=== PATIENT | male | born 1965 | race Hispanic/Latino ===

== ENCOUNTER 2017-10-18 09:25 | Day surgery (SDC) | payer MEDICAID ==
[~2017-10-18 09:25] MED LIST: ACET-66 PO; CRAN1TAB2 PO; FERR220E7 PO; FOLI1TAB15 PO; LACT10SO9 PO; LORA0.5T83 PO; MELA1TAB28 PO; MIRALAX PO; MULT-248 PO; SENN8.8S10 PO; [UNRECOGNIZED DRUG - SUPPLY] PO
[2017-10-18 10:13] LABS: HEMATOCRIT 26.8 % (42-54)
== END 2017-10-18 11:45 ==
LOC: DAH 09:25
PROVIDERS: ATTEND Family Medicine
DX: D50.9 Iron deficiency anemia, unspecified (principal); Z53.9 Procedure and treatment not carried out, unspecified reason; G80.2 Spastic hemiplegic cerebral palsy; K21.9 Gastro-esophageal reflux disease without esophagitis; F41.9 Anxiety disorder, unspecified; E56.8 Deficiency of other vitamins; E46 Unspecified protein-calorie malnutrition; Z79.899 Other long term (current) drug therapy
CPT/HCPCS: 36415; 85014; 85018; 86850; 86900; 86901; 86922

== ENCOUNTER 2018-07-01 10:40 | Inpatient (IN) | payer MEDICAID ==
[2018-07-01] VITALS (9 sets, daily range): BP systolic 95–122; BP diastolic 51–93
[~2018-07-01 10:40] MED LIST changes: -LORA0.5T83 PO; -MIRALAX PO; -[UNRECOGNIZED DRUG - SUPPLY] PO
[2018-07-01] MEDS ORDERED: LORAZEPAM 2 MG/ML 1 ML VIAL ONE (11:35)
[2018-07-01] MEDS ORDERED: SODIUM CHLORIDE 0.9% 1000ML 1,000 ML IV ONE (11:38)
[2018-07-01 12:25] LABS: BASOPHILS % (AUTO) 2.6 % (0.0-5.0); LYMPHOCYTES % (AUTO) 19.2 % (21.0-51.0); MEAN CORPUSCULAR HEMOGLOBIN 19.3 pg (27.0-33.0); MEAN CORPUSCULAR HGB CONC 28.1 g/dL (32.0-36.0); MEAN CORPUSCULAR VOLUME 68.7 fL (79-99); NEUTROPHILS % (AUTO) 56.2 % (40.0-77.0); NUCLEATED RED BLOOD CELLS 0.1 % (0.0-0.19); PLATELET COUNT (AUTO) 269 K/uL (130-400); RED BLOOD CELL COUNT(AUTO) 3.63 MIL/uL (4.50-6.20); RED CELL DISTRIBUTION WIDTH 22.5 % (11.0-15.5); WHITE BLOOD COUNT (AUTO) 3.7 K/uL (4.8-10.8)
[2018-07-01 12:40] LABS: INR 1.01 (0.85-1.15); PARTIAL THROMBOPLASTIN TIME 24.3 SEC (26.3-35.5); PROTHROMBIN TIME 10.6 SEC (9.6-11.6)
[2018-07-01] MEDS ORDERED: ACETAMINOPHEN 325 MG TAB PO PRN ×2 (13:00)
[2018-07-01] MEDS ORDERED: HYDRALAZINE HCL 20 MG/ML VIAL IV PRN (13:00)
[2018-07-01] MEDS ORDERED: ONDANSETRON HCL 4 MG/2 ML VIAL IV PRN (13:00)
[2018-07-01 13:08] LABS: CREATININE 0.7 mg/dL (0.5-1.5)
[2018-07-01] MEDS ORDERED: SODIUM CHLORIDE 0.9% 100 ML IV ONE (13:58)
[2018-07-01 14:42] LABS: % IRON SATURATION 1.4 % (30-44)
--- NOTE | 2018-07-01 20:00 | NUR ---
PT ASSESSMENT- IN BED, ONE TO ONE SITTER JAQUELINE. AAOX1. INCOMPREHENSIBLE SOUNDS. PERRLA. LAST BM 06/30. HYPOACTIVE BOWEL SOUNDS. PT IS VERY ACTIVE. MOVES AROUND ALOT IN BED. CONTRACTED TO EXTREMITIES. CEREBRAL PALSY HISTORY. IV PATENT AND WRAPPED IN BANDAGE. PT RECEIVING ONE UNIT OF RBCS. NO REACTIONS NOTED. VSWNL. BRIEF IN PLACE.
[2018-07-02] MEDS ORDERED: LORAZEPAM 2 MG/ML 1 ML VIAL IVP ONE (01:00)
--- NOTE | 2018-07-02 01:00 | NUR ---
PT NOTED TO HAVE INCREASED ACTIVITY LEVELS AND INCREASED ANXIETY. PT RESTLESS. CONTINUING TO PULL AT IV AND ATTEMPT TO GET OUT OF BED. CALLED NING UGARTE NP. NEW ORDER FOR ATIVAN 1MG IV X1DOSE.
--- NOTE | 2018-07-02 02:00 | NUR ---
PT EYES CLOSED, NO DISTRESS NOTED. NO ATIVAN ADMINISTERED AT THE MOMENT.
[2018-07-02 04:00] VITALS: BP 112/59
[2018-07-02 04:01] VITALS: BP 112/59
[2018-07-02] MEDS ORDERED: COMPOUND IV MISC 1 EACH IVSOLN MISC PRN (07:00)
[2018-07-02] MEDS ORDERED: EPOETIN ALFA 10,000 UNIT/ML VIAL SQ SCH (07:00)
[2018-07-02 07:26] LABS: MEAN CORPUSCULAR HEMOGLOBIN 21.3 pg (27.0-33.0); MEAN CORPUSCULAR VOLUME 71.2 fL (79-99); NUCLEATED RED BLOOD CELLS 0.4 % (0.0-0.19); PLATELET COUNT (AUTO) 271 K/uL (130-400); RED BLOOD CELL COUNT(AUTO) 3.79 MIL/uL (4.50-6.20); RED CELL DISTRIBUTION WIDTH 23.8 % (11.0-15.5)
[2018-07-02 07:32] LABS: INR 1.02 (0.85-1.15); PARTIAL THROMBOPLASTIN TIME 26.2 SEC (26.3-35.5); PROTHROMBIN TIME 10.7 SEC (9.6-11.6)
[2018-07-02 07:36] VITALS: BP_SYST 115; BP_SYST 89; BP_DIAS 57; BP_DIAS 59
[2018-07-02 08:17] LABS: ALBUMIN 2.6 g/dL (3.5-5.0); BILIRUBIN,TOTAL 0.5 mg/dL (0.2-1.0); CREATININE 0.6 mg/dL (0.5-1.5); MAGNESIUM 1.9 mg/dL (1.80-2.40); PHOSPHORUS 2.7 mg/dL (2.5-4.9); POTASSIUM 4.2 mmol/L (3.5-5.1); TOTAL PROTEIN, SERUM 5.6 g/dL (6.0-8.3)
[2018-07-02] MEDS ORDERED: PANTOPRAZOLE SODIUM 80 MG in SODIUM CHLORIDE 0.9% 100 ML IV SCH (09:00)
[2018-07-02] MEDS ORDERED: IRON SUCROSE COMPLEX 100 MG in SODIUM CHLORIDE 0.9% 50 ML IV SCH (09:00)
[2018-07-02 11:56] VITALS: BP 92/65
[2018-07-02] MEDS ORDERED: ASCO500T9 PO (12:01)
[2018-07-02] MEDS ORDERED: PANT40TA PO (12:01)
--- NOTE | 2018-07-02 14:00 | NUR ---
REPORT GIVEN TO PAYAM MCKINNEY FROM [facility] AND [facility] PATIENTS SISTER. BOTH AWARE OF TRANSFER TO [facility].
--- NOTE | 2018-07-02 14:01 | NUR ---
PENDING [facility] TRANSPORTATION
--- NOTE | 2018-07-02 14:36 | NUR ---
DC PLAN PER KRYS Landin/ DANNI, PATIENT ACCEPTED BACK. NO PASRR NEEDED. UPDATED PRIMARY NURSE. CHART ALREADY COPIED.
--- NOTE | 2018-07-02 17:00 | NUR ---
PATIENT TRANSFERRED BY [facility] STAFF NO DISTRESS.
[2018-07-03] MEDS ORDERED: PANTOPRAZOLE SODIUM 40 MG TABLET.DR PO SCH (09:00)
[2018-07-03] MEDS ORDERED: ASCORBIC ACID 500 MG TAB PO SCH (09:00)
[2018-07-03] MEDS ORDERED: FERROUS SULFATE 325 MG TABLET.DR PO SCH (09:00)
== END 2018-07-02 17:13 | DRG 663 ==
LOC: EDH 10:40 → EDHIP 10:41 → 2AH 13:35
PROVIDERS: ADMIT Internal Medicine; ATTEND Internal Medicine
PROC: 30233N1 Transfusion of Nonautologous Red Blood Cells into Peripheral Vein, Percutaneous Approach (ICD-10-PCS; principal; 2018-07-02)
DX: D64.9 Anemia, unspecified (principal); R53.2 Functional quadriplegia; J98.4 Other disorders of lung; M41.9 Scoliosis, unspecified; K21.9 Gastro-esophageal reflux disease without esophagitis; G80.9 Cerebral palsy, unspecified; K92.2 Gastrointestinal hemorrhage, unspecified; Z66 Do not resuscitate; Z88.5 Allergy status to narcotic agent; Z88.8 Allergy status to other drugs, medicaments and biological substances; Z74.01 Bed confinement status; Z83.3 Family history of diabetes mellitus; Z82.5 Family history of asthma and other chronic lower respiratory diseases; Z82.49 Family history of ischemic heart disease and other diseases of the circulatory system; Z82.3 Family history of stroke; Z82.0 Family history of epilepsy and other diseases of the nervous system
CPT/HCPCS: 36415; 36430; 80048; 80053; 82270; 83540; 83550; 83735; 84100; 84443; 85025; 85027; 85610; 85730; 86850; 86900; 86901; 86922; 87040; 99291; G0378; J0885; J1756; J2060; J7030; P9016

== ENCOUNTER 2018-07-18 11:00 | Emergency (ER) | payer MEDICAID ==
[~2018-07-18 11:00] MED LIST changes: +ASCO500T9 PO; +PANT40TA PO
[2018-07-18 11:32] LABS: BASOPHILS % (AUTO) 2.5 % (0.0-5.0); EOSINOPHILS % (AUTO) 11.2 % (0.0-8.0); HEMATOCRIT 24.2 % (42-54); LYMPHOCYTES % (AUTO) 18.3 % (21.0-51.0); MEAN CORPUSCULAR HGB CONC 29.7 g/dL (32.0-36.0); MEAN CORPUSCULAR VOLUME 67.3 fL (79-99); MONOCYTES % (AUTO) 14.5 % (3.0-13.0); NEUTROPHILS % (AUTO) 53.5 % (40.0-77.0); NUCLEATED RED BLOOD CELLS 0.2 % (0.0-0.19); PLATELET COUNT (AUTO) 424 K/uL (130-400); RED BLOOD CELL COUNT(AUTO) 3.59 MIL/uL (4.50-6.20); RED CELL DISTRIBUTION WIDTH 21.6 % (11.0-15.5); WHITE BLOOD COUNT (AUTO) 4.4 K/uL (4.8-10.8)
[2018-07-18 11:40] LABS: CREATININE 0.8 mg/dL (0.5-1.5); POTASSIUM 4.2 mmol/L (3.5-5.1)
[2018-07-18 11:46] LABS: BILIRUBIN,TOTAL 0.2 mg/dL (0.2-1.0); TOTAL PROTEIN, SERUM 6.5 g/dL (6.0-8.3)
[2018-07-18] MEDS ORDERED: MINERAL OIL 25 ML OIL TP SCH (12:15)
[2018-07-18 16:26] LABS: HEMATOCRIT 27.8 % (42-54)
== END 2018-07-18 17:26 | disposition home or self-care (01) ==
LOC: EDH 11:00
DX: H61.23 Impacted cerumen, bilateral (principal); D50.0 Iron deficiency anemia secondary to blood loss (chronic); K92.2 Gastrointestinal hemorrhage, unspecified; G80.9 Cerebral palsy, unspecified; R62.50 Unspecified lack of expected normal physiological development in childhood; K21.9 Gastro-esophageal reflux disease without esophagitis; Z88.6 Allergy status to analgesic agent; Z91.018 Allergy to other foods
CPT/HCPCS: 36415; 69210; 80053; 85014; 85018; 85025; 86850; 86900; 86901; 86922; 99284; P9016

== ENCOUNTER 2018-09-26 08:24 | Observation (INO) | payer MEDICAID ==
[~2018-09-26] VITALS: Ht 157.5 cm; Wt 37.0 kg
[~2018-09-26 08:24] MED LIST changes: +DOCU-116 PO; -FERR220E7 PO; -LACT10SO9 PO
[2018-09-26 10:51] LABS: BASOPHILS % (AUTO) 1.6 % (0.0-5.0); EOSINOPHILS % (AUTO) 19.8 % (0.0-8.0); HEMATOCRIT 21.4 % (42-54); LYMPHOCYTES % (AUTO) 22.7 % (21.0-51.0); MEAN CORPUSCULAR HEMOGLOBIN 21.2 pg (27.0-33.0); MEAN CORPUSCULAR HGB CONC 29.7 g/dL (32.0-36.0); MEAN CORPUSCULAR VOLUME 71.3 fL (79-99); MONOCYTES % (AUTO) 7.7 % (3.0-13.0); NEUTROPHILS % (AUTO) 48.2 % (40.0-77.0); NUCLEATED RED BLOOD CELLS 0.2 % (0.0-0.19); PLATELET COUNT (AUTO) 368 K/uL (130-400); WHITE BLOOD COUNT (AUTO) 3.7 K/uL (4.8-10.8)
[2018-09-26 11:01] LABS: CREATININE 0.7 mg/dL (0.5-1.5); POTASSIUM 3.8 mmol/L (3.5-5.1)
[2018-09-26] MEDS ORDERED: HYDRALAZINE HCL 20 MG/ML VIAL IV PRN (11:45)
[2018-09-26] MEDS ORDERED: LACTULOSE 20 GM/30 ML UDCUP PO PRN (11:45)
[2018-09-26] MEDS ORDERED: ONDANSETRON HCL 4 MG/2 ML VIAL IV PRN (11:45)
[2018-09-26] MEDS ORDERED: ACETAMINOPHEN 325 MG TAB PO PRN ×2 (11:45)
[2018-09-26] MEDS: FAMOTIDINE/PF 20 MG/2 ML VIAL IV SCH (21:00)
[2018-09-26] MEDS ORDERED: FAMOTIDINE/PF 20 MG/2 ML VIAL IV ONE (22:25)
[2018-09-26 23:25] VITALS: BP 105/64
--- NOTE | 2018-09-26 23:25 | NUR ---
ADMISSION NOTE: Received per stretcher and transferred in bed comfortably. VS checked and recorded. Assessment done. Plan of care initiated. Dr. Clemens seen and examined pt. Monitored and kept watched for any unusualities. Placed on 1:1 level of supervision for safety. Distress / discomfort not noted. Needs attended and cared for.
[2018-09-27] MEDS ORDERED: DiphenhydrAMINE HCL 50 MG/ML VIAL IV SCH (02:45)
[2018-09-27] MEDS ORDERED: DiphenhydrAMINE HCL 50 MG/ML VIAL ONE (02:45)
[2018-09-27 04:00] VITALS: BP 101/61
[2018-09-27 04:21] LABS: HEMATOCRIT 28.9 % (42-54)
[2018-09-27 04:36] LABS: % IRON SATURATION 4.2 % (30-44)
[2018-09-27] MEDS ORDERED: SENN8.6T52 PO (06:32)
[2018-09-27] MEDS ORDERED: PANT40SU PO (06:32)
[2018-09-27] MEDS ORDERED: MULT1TAB70 PO (06:49)
[2018-09-27] MEDS ORDERED: ACET-2743 PO (06:51)
[2018-09-27 08:00] VITALS: BP 98/61
--- NOTE | 2018-09-27 09:29 | NUR ---
Nutrition Intervention: Nutrition screen by RD for low BMI-14.9. At time of RD visit pt asleep with no caregiver at bedside. Pt easily awaken to the sound of my voice, however unable to obtain nutritional feedback from him. As per pt's RN, pt's diet is NPO for possible GI bleed. RD to return when pt's caregiver is present to obtain nutritional feedback and recommend appropriate diet placement when diet is feasible to advance. Recommendations: Please contact RD when caregiver is present to obtain nutritional feedback. Addendum: 09/27/18 at [address] Amended: Links added.
[2018-09-27] MEDS: FAMOTIDINE/PF 20 MG/2 ML VIAL IV SCH (09:46)
[2018-09-27 11:00] VITALS: BP 98/49
--- NOTE | 2018-09-27 12:24 | NUR ---
NUTRITION RECOMMENDATIONS: RD spoke to Sona Díaz EMPLOYMENT COUNSELOR over the phone as pt is a known patient of hers. EMPLOYMENT COUNSELOR reports texture baselines of puree textures, Zeb thick liquid consistency and requires feeding assistance. EMPLOYMENT COUNSELOR plans to advance diet therapy today. As per PMH and pt's baseline, recommend diet therapy of of SOFT/BLAND with PUREE and NECTAR THICK LIQUIDS modifiers for appropriate diet placement to prevent GI discomfort. Recommendations: Diet therapy: Soft/bland, puree, nectar thick liquids. Feeding assistance for optimal PO Intake. Monitor po intake and tolerance. Monitor for BM. Consult RD as nutrition concerns arise.
--- NOTE | 2018-09-27 13:00 | NUR ---
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 PT WITH CHRONIC ANEMIA HAD TRANS FUSION. ADMISISON ARE RECURRENT. PT HAS SPECIAL CHAIR IN ROOM. KRYS CONTACTED TO MAKE SURE SHE KNOW PT WILL GO HOME TODAY Addendum: 09/27/18 at 1939 by XIAO ATKINSON RN CM Amended: Links added.
[2018-09-27 16:00] VITALS: BP 109/60
[2018-09-27] MEDS ORDERED: SODIUM CHLORIDE 0.9% 1000ML 1,000 ML IV SCH (16:15)
--- NOTE | 2018-09-27 18:03 | NUR ---
Report called to PAYAM Andrews at [facility]. Will send bookmobile driver.
== END 2018-09-27 19:17 ==
LOC: EDH 08:24 → EDHIP 11:41 → 4CH 22:44
PROVIDERS: ADMIT Internal Medicine; ATTEND Internal Medicine
DX: D64.9 Anemia, unspecified (principal); G80.9 Cerebral palsy, unspecified; K21.9 Gastro-esophageal reflux disease without esophagitis; M41.9 Scoliosis, unspecified; R53.2 Functional quadriplegia; Z66 Do not resuscitate; Z74.01 Bed confinement status; Z82.0 Family history of epilepsy and other diseases of the nervous system; Z82.3 Family history of stroke; Z82.49 Family history of ischemic heart disease and other diseases of the circulatory system; Z82.5 Family history of asthma and other chronic lower respiratory diseases; Z83.3 Family history of diabetes mellitus
CPT/HCPCS: 36415 ×2; 36430; 80048; 83540; 83550; 85014; 85018; 85025; 86850; 86900; 86901; 86922; 96374; 99284; G0378 ×32; J1200; J3490 ×2; P9016 ×2

== ENCOUNTER 2019-01-16 17:09 | Inpatient (IN) | payer MEDICAID | END 2019-01-18 15:15 | LOC: EDH 17:09 → 3BH 01-17 06:14 → EDHIP 17:10 → 3CH 20:33 → 3AH 22:00 | DX: K92.2 Gastrointestinal hemorrhage, unspecified (principal); D64.9 Anemia, unspecified ==

== ENCOUNTER 2019-02-11 11:35 | Observation (INO) | payer MEDICAID ==
[~2019-02-11] VITALS: Ht 152.4 cm; Wt 34.8 kg
[~2019-02-11 11:35] MED LIST changes: +ACET-2743 PO; +MULT1TAB70 PO; +PANT40SU PO; -PANT40TA PO; +SENN8.6T52 PO; -SENN8.8S10 PO
[2019-02-11 12:36] LABS: BASOPHILS % (AUTO) 1.5 % (0.0-5.0); EOSINOPHILS % (AUTO) 7.2 % (0.0-8.0); HEMATOCRIT 23.8 % (42-54); LYMPHOCYTES % (AUTO) 8.7 % (21.0-51.0); MEAN CORPUSCULAR HEMOGLOBIN 20.8 pg (27.0-33.0); MEAN CORPUSCULAR HGB CONC 30.9 g/dL (32.0-36.0); MEAN CORPUSCULAR VOLUME 67.1 fL (79-99); MONOCYTES % (AUTO) 11.5 % (3.0-13.0); NEUTROPHILS % (AUTO) 71.1 % (40.0-77.0); NUCLEATED RED BLOOD CELLS 0.1 % (0.0-0.19); RED BLOOD CELL COUNT(AUTO) 3.55 MIL/uL (4.50-6.20); WHITE BLOOD COUNT (AUTO) 5.4 K/uL (4.8-10.8)
[2019-02-11 12:41] LABS: CREATININE 0.8 mg/dL (0.5-1.5); POTASSIUM 4.6 mmol/L (3.5-5.1)
[2019-02-11 12:43] LABS: PLATELET COUNT (AUTO) 715 K/uL (130-400)
[2019-02-11 12:46] LABS: ALBUMIN 2.6 g/dL (3.5-5.0); BILIRUBIN,TOTAL 0.2 mg/dL (0.2-1.0); TOTAL PROTEIN, SERUM 6.4 g/dL (6.0-8.3)
[2019-02-11 12:50] LABS: INR 1.03 (0.85-1.15); PARTIAL THROMBOPLASTIN TIME 23.6 SEC (26.3-35.5); PROTHROMBIN TIME 10.8 SEC (9.6-11.6)
[2019-02-11 13:34] LABS: PLATELET MORPHOLOGY COMMENT MARKED INCREASE
[2019-02-11] MEDS ORDERED: DOCUSATE SODIUM 100 MG CAP PO PRN (14:30)
[2019-02-11] MEDS ORDERED: DIPHENHYDRAMINE HCL 25 MG CAPSULE PO PRN (14:30)
[2019-02-11] MEDS ORDERED: HYDRALAZINE HCL 20 MG/ML VIAL IV PRN (14:30)
[2019-02-11] MEDS ORDERED: ACETAMINOPHEN EXTRA STRENGTH 500 MG TABLET PO SCH (14:30)
[2019-02-11] MEDS ORDERED: SODIUM CHLORIDE 0.9% 250 ML IV ONE (15:52)
[2019-02-11 16:55] VITALS: BP 120/46
[2019-02-11] MEDS: SODIUM CHLORIDE 0.9% 1000ML 1,000 ML IV SCH (18:35)
--- NOTE | 2019-02-11 19:00 | NUR ---
PATIENT TOLERATED BLOOD TRANSFUSION. INFORMED SISTER THAT PATIENT DID WELL. NO REACTIONS OF SIDE EFFECTS.
[2019-02-11 20:00] VITALS: BP 143/48
[2019-02-11] MEDS: PANTOPRAZOLE SODIUM 40 MG TABLET.DR PO SCH (20:10)
[2019-02-11] MEDS ORDERED: **HM**(Melatonin/Pyridoxine HCl (B6) (Melatonin 3 mg Tablet PO SCH (21:00)
[2019-02-12] VITALS: BP 136/59
[2019-02-12 04:00] VITALS: BP 105/66
[2019-02-12 04:37] LABS: HEMATOCRIT 26.8 % (42-54); MEAN CORPUSCULAR HEMOGLOBIN 22.2 pg (27.0-33.0); MEAN CORPUSCULAR VOLUME 69.2 fL (79-99); NUCLEATED RED BLOOD CELLS 0.1 % (0.0-0.19); PLATELET COUNT (AUTO) 546 K/uL (130-400); RED BLOOD CELL COUNT(AUTO) 3.88 MIL/uL (4.50-6.20); RED CELL DISTRIBUTION WIDTH 24.8 % (11.0-15.5); WHITE BLOOD COUNT (AUTO) 7.1 K/uL (4.8-10.8)
[2019-02-12 04:39] LABS: CREATININE 0.5 mg/dL (0.5-1.5); POTASSIUM 3.8 mmol/L (3.5-5.1)
[2019-02-12 07:00] VITALS: BP_SYST 107; BP_SYST 114; BP_DIAS 42; BP_DIAS 55
[2019-02-12] MEDS ORDERED: FERS325 PO (08:46)
[2019-02-12] MEDS ORDERED: ASCORBIC ACID 500 MG TAB PO SCH (09:00)
[2019-02-12] MEDS ORDERED: FOLIC ACID 1 MG TABLET PO SCH (09:00)
[2019-02-12] MEDS ORDERED: [UNRECOGNIZED DRUG - OTHER] PO SCH (09:00)
[2019-02-12] MEDS ORDERED: MULTIVITAMIN WITH MINERALS TABLET PO SCH (09:00)
--- NOTE | 2019-02-12 09:32 | NUR ---
DCP: [facility] reacceptance CM met with pt, spoke to family, agreeable for pt to return to [facility]. Faxed clinicals, confirmation received. Spoke to Rosamaria reyez/[facility], pt has reacceptance. Safe to transfer via [facility] transport van, pt has own wheelchair in room. Primary nurse aware. CM to cont to follow up.
[2019-02-12] MEDS: PANTOPRAZOLE SODIUM 40 MG TABLET.DR PO SCH (10:07)
[2019-02-12] MEDS: SODIUM CHLORIDE 0.9% 1000ML 1,000 ML IV SCH (10:28)
[2019-02-12 11:00] VITALS: BP 112/64
--- NOTE | 2019-02-12 12:45 | NUR ---
CANCEL ORDER. NURSE SCOTT REPORTS Pt'S FAMILY STATED THEY DID NOT WANT AN EVALUATION AT THIS TIME. Pt IS CURRENTLY TOLERATING PUREED DIET. Pt CURRENTLY ADMITTED SECONDARY TO SYMPTOMATIC ANEMIA. Pt HAS A PAST MEDICAL HISTORY SIGNIFICANT FOR GI BLEED, MR. Addendum: 02/12/19 at 1247 by JAIR GUERRA, SPT ST Amended: Links added.
--- NOTE | 2019-02-12 13:00 | NUR ---
REPORT GIVEN TO BRIANA HARE AT [facility]. ALL QUESTIONS ANSWERED. CHART COPIED AND WILL BE SENT WITH TRANSPORTER FROM [facility]. IV DISCONTINUE WITH INNER CANNULA INTACT. NOTIFIED FRANCISCA BAH SISTER OF PATIENT. INFORMED THAT PATIENT WILL BE TRANSFERRING BACK TO [facility].
--- NOTE | 2019-02-12 14:23 | NUR ---
RD NOTIFICATION Primary Diagnosis: Symptomatic Anemia. Hx: Cerebral palsy, MR, Chronic anemia, Recurrent GI bleed. BMI is 15; classified as underweight. Current diet: Total Feeder- Heart Healthy, Pureed, [place] thick. LBM: 02/10. Meds: Protonix. Labs: + Stool Occult Blood, Hgb 8.6, HCT 26.8, Cl 112, Alb 2.6. PO 100% as per nurse. Appetite is good as per nurse. There is physical evidence for muscle and fat loss. Pt will be discharged today; going to [facility] as per nurse. Pt was alone in room during time of visit. Pt found in room constantly moving around. RD recommends to continue current diet. RD will continue to monitor and follow up as needed. Please notify RD if any other nutritional concerns arise, Thank you. Addendum: 02/12/19 at [address] Amended: Links added.
== END 2019-02-12 16:10 ==
LOC: EDH 11:35 → EDHIP 11:36 → 3AH 16:19
PROVIDERS: ADMIT Hospitalist; ATTEND Hospitalist
DX: D64.9 Anemia, unspecified (principal); K92.2 Gastrointestinal hemorrhage, unspecified; K21.9 Gastro-esophageal reflux disease without esophagitis; F79 Unspecified intellectual disabilities; Z74.01 Bed confinement status; Z82.0 Family history of epilepsy and other diseases of the nervous system; Z82.3 Family history of stroke; Z82.49 Family history of ischemic heart disease and other diseases of the circulatory system; Z83.3 Family history of diabetes mellitus; Z79.899 Other long term (current) drug therapy; Z88.8 Allergy status to other drugs, medicaments and biological substances
CPT/HCPCS: 36415 ×2; 36430; 80048; 80053; 82270; 85025; 85027; 85610; 85730; 86850; 86900; 86901; 86922; 99291; G0378 ×23; J7030 ×2; P9016

== ENCOUNTER 2019-03-14 12:07 | Observation (INO) | payer MEDICAID ==
[~2019-03-14] VITALS: Ht 152.4 cm; Wt 34.7 kg
[~2019-03-14 12:07] MED LIST changes: +FERS325 PO
[2019-03-14 13:08] LABS: HEMATOCRIT 21.4 % (42-54); WHITE BLOOD COUNT (AUTO) 3.3 K/uL (4.8-10.8)
[2019-03-14 13:14] LABS: CREATININE 0.8 mg/dL (0.5-1.5); POTASSIUM 3.9 mmol/L (3.5-5.1)
[2019-03-14 13:22] LABS: BASOPHILS % (AUTO) 1.3 % (0.0-5.0); EOSINOPHILS % (AUTO) 6.5 % (0.0-8.0); LYMPHOCYTES % (AUTO) 14.1 % (21.0-51.0); MEAN CORPUSCULAR HEMOGLOBIN 19.1 pg (27.0-33.0); MEAN CORPUSCULAR HGB CONC 29.7 g/dL (32.0-36.0); MEAN CORPUSCULAR VOLUME 64.1 fL (79-99); MONOCYTES % (AUTO) 12.3 % (3.0-13.0); NEUTROPHILS % (AUTO) 65.8 % (40.0-77.0); NUCLEATED RED BLOOD CELLS 0.4 % (0.0-0.19); PLATELET COUNT (AUTO) 659 K/uL (130-400); RED BLOOD CELL COUNT(AUTO) 3.33 MIL/uL (4.50-6.20); RED CELL DISTRIBUTION WIDTH 22.7 % (11.0-15.5)
[2019-03-14] MEDS ORDERED: ACETAMINOPHEN 325 MG TAB PO PRN (16:30)
[2019-03-14] MEDS ORDERED: ONDANSETRON HCL 4 MG/2 ML VIAL IV PRN (16:30)
[2019-03-14] MEDS ORDERED: HYDRALAZINE HCL 20 MG/ML VIAL IV PRN (16:30)
[2019-03-14] MEDS: PANTOPRAZOLE SODIUM 40 MG TABLET.DR PO SCH (16:30)
[2019-03-14] MEDS ORDERED: SODIUM CHLORIDE 0.9% 500ML 500 ML IV ONE (18:22)
[2019-03-14] MEDS ORDERED: PANTOPRAZOLE SODIUM 40 MG TABLET.DR PO ONE (19:41)
[2019-03-14] MEDS ORDERED: FAMOTIDINE/PF 20 MG/2 ML VIAL IV SCH (21:00)
[2019-03-14 21:30] VITALS: BP 97/53
[2019-03-15] VITALS: BP 126/55
[2019-03-15 04:00] VITALS: BP 109/62
[2019-03-15 06:01] LABS: BASOPHILS % (AUTO) 1.2 % (0.0-5.0); EOSINOPHILS % (AUTO) 7.5 % (0.0-8.0); LYMPHOCYTES % (AUTO) 14.8 % (21.0-51.0); MEAN CORPUSCULAR HEMOGLOBIN 18.9 pg (27.0-33.0); MEAN CORPUSCULAR HGB CONC 29.7 g/dL (32.0-36.0); MEAN CORPUSCULAR VOLUME 63.7 fL (79-99); MONOCYTES % (AUTO) 12.9 % (3.0-13.0); NEUTROPHILS % (AUTO) 63.6 % (40.0-77.0); NUCLEATED RED BLOOD CELLS 0.6 % (0.0-0.19); PLATELET COUNT (AUTO) 562 K/uL (130-400); RED BLOOD CELL COUNT(AUTO) 3.24 MIL/uL (4.50-6.20); RED CELL DISTRIBUTION WIDTH 22.1 % (11.0-15.5)
[2019-03-15 06:05] LABS: HEMATOCRIT 20.6 % (42-54)
[2019-03-15 06:07] LABS: CREATININE 0.6 mg/dL (0.5-1.5)
--- NOTE | 2019-03-15 06:55 | NUR ---
PATIENT UPDATE Latest h/h after receiving 1 unit of prbc was at 6.[address] Dominguez called with the latest lab results with orders to transfuse 1 more unit of prbc. updated with pt's history, abt the chronic anemia.
[2019-03-15 07:00] VITALS: BP 95/55
[2019-03-15] MEDS: PANTOPRAZOLE SODIUM 40 MG TABLET.DR PO SCH (09:00)
[2019-03-15 11:00] VITALS: BP 108/72
[2019-03-15 15:52] VITALS: BP 119/46
[2019-03-15 17:21] LABS: HEMATOCRIT 23.1 % (42-54)
[2019-03-15 19:45] VITALS: BP 114/62
[2019-03-15] MEDS ORDERED: SODIUM CHLORIDE 0.9% 500ML 500 ML IV ONE (22:06)
[2019-03-16 00:30] VITALS: BP 89/55
[2019-03-16 04:03] VITALS: BP 93/55
[2019-03-16 06:30] LABS: HEMATOCRIT 24.1 % (42-54); MEAN CORPUSCULAR HEMOGLOBIN 19.8 pg (27.0-33.0); MEAN CORPUSCULAR HGB CONC 30.7 g/dL (32.0-36.0); MEAN CORPUSCULAR VOLUME 64.6 fL (79-99); NUCLEATED RED BLOOD CELLS 0.5 % (0.0-0.19); PLATELET COUNT (AUTO) 512 K/uL (130-400); RED BLOOD CELL COUNT(AUTO) 3.73 MIL/uL (4.50-6.20); RED CELL DISTRIBUTION WIDTH 23.8 % (11.0-15.5); WHITE BLOOD COUNT (AUTO) 4.4 K/uL (4.8-10.8)
[2019-03-16 06:50] LABS: CREATININE 0.6 mg/dL (0.5-1.5); POTASSIUM 4.4 mmol/L (3.5-5.1)
[2019-03-16 07:20] VITALS: BP 108/51
--- NOTE | 2019-03-16 07:50 | NUR ---
PATIENT UPDATE H/H yesterday pm after transfusion with 1 unit of prbc at 6.8/23.1, transfused another unit of prbc as per protocol. Pt tolerated the blood well, new iv started on the left upper arm for the blood transfusion. Latest h/h this am after the 3rd unit of prbc at 7.4/24.1. No active signs of bleeding, had one bm at shift change and the stool was black colored, will continue to monitor for signs of bleeding.
[2019-03-16] MEDS ORDERED: FERROUS SULFATE 325 MG TABLET.DR PO SCH (08:00)
[2019-03-16 08:26] LABS: BASOPHILS % (MANUAL) 2 % (0-2); EOSINOPHILS % (MANUAL) 2 % (1-6); LYMPHOCYTES % (MANUAL) 19 % (22-44); MAN.DIFF COMMENT-IMPRESSION MANUAL DIFFERENTIAL; MONOCYTES % (MANUAL) 6 % (2-9); PLATELET MORPHOLOGY COMMENT ADEQUATE; SEGMENTED NEUTROPHILS % 71 % (40-70)
[2019-03-16] MEDS: PANTOPRAZOLE SODIUM 40 MG TABLET.DR PO SCH (08:49)
[2019-03-16 11:44] VITALS: BP 90/44
--- NOTE | 2019-03-16 13:46 | NUR ---
D/C JANET BURNS reviewed medical record. Pt is under prison care at [facility]. CM spoke to Malia with [facility]. States pt is accepted back to facility and can transport pt. CM notified nurse Casas of acceptance. Pt to discharge today to facility Addendum: 03/16/19 at 1349 by GILBERT HUSTON Amended: Links added.
--- NOTE | 2019-03-16 15:26 | NUR ---
Discharge instructions called to [facility] nurse "Rosamaria". Emphasis on importance of following up with Dr Oscar 1-[address] Yuan to follow at [facility]. [facility] nurse reports that lease purchase driver is not available until 1700. Notified sister Meaghan Bear of pending transfer. Sister voiced request to have manager staffing consult with pt at [facility]. Notified "Luis E" at [facility] of family's request. PIV already removed by primary nurse Leann.
[2019-03-16 16:19] VITALS: BP 114/65
== END 2019-03-16 16:15 ==
LOC: EDH 12:07 → EDHIP 12:08 → 3DH 21:35
PROVIDERS: ADMIT Hospitalist; ATTEND Hospitalist
DX: D64.9 Anemia, unspecified (principal); F79 Unspecified intellectual disabilities; R53.81 Other malaise; G80.9 Cerebral palsy, unspecified; F03.90 Unspecified dementia, unspecified severity, without behavioral disturbance, psychotic disturbance, mood disturbance, and anxiety; K21.9 Gastro-esophageal reflux disease without esophagitis; Z87.19 Personal history of other diseases of the digestive system; Z79.899 Other long term (current) drug therapy; Z88.5 Allergy status to narcotic agent; Z91.018 Allergy to other foods
CPT/HCPCS: 36415 ×3; 36430; 80048 ×3; 82948; 85014; 85018; 85025 ×3; 86850; 86900; 86901; 86922 ×3; 99284; G0378 ×42; J7040 ×2; P9016 ×3

== ENCOUNTER 2019-04-11 17:15 | Observation (INO) | payer MEDICAID ==
[~2019-04-11] VITALS: Ht 152.4 cm; Wt 32.4 kg
[2019-04-11 19:11] LABS: BASOPHILS % (AUTO) 2.3 % (0.0-5.0); EOSINOPHILS % (AUTO) 7.8 % (0.0-8.0); HEMATOCRIT 21.5 % (42-54); LYMPHOCYTES % (AUTO) 13.9 % (21.0-51.0); MEAN CORPUSCULAR HEMOGLOBIN 20.5 pg (27.0-33.0); MEAN CORPUSCULAR HGB CONC 29.7 g/dL (32.0-36.0); MEAN CORPUSCULAR VOLUME 69.3 fL (79-99); MONOCYTES % (AUTO) 8.8 % (3.0-13.0); NEUTROPHILS % (AUTO) 67.2 % (40.0-77.0); RED BLOOD CELL COUNT(AUTO) 3.11 MIL/uL (4.50-6.20); RED CELL DISTRIBUTION WIDTH 25.2 % (11.0-15.5); WHITE BLOOD COUNT (AUTO) 5.4 K/uL (4.8-10.8)
[2019-04-11 19:17] LABS: CREATININE 0.6 mg/dL (0.5-1.5); POTASSIUM 4.3 mmol/L (3.5-5.1)
[2019-04-11 19:21] LABS: ALBUMIN 2.4 g/dL (3.5-5.0); BILIRUBIN,TOTAL 0.2 mg/dL (0.2-1.0); PLATELET COUNT (AUTO) 998 K/uL (130-400); TOTAL PROTEIN, SERUM 5.7 g/dL (6.0-8.3)
[2019-04-11 19:31] LABS: CREATINE KINASE, TOTAL 25 U/L (21-232); MYOGLOBIN 17 ng/mL (10-92); TROPONIN I < 0.04 ng/mL (0.00-0.06)
[2019-04-11 20:10] LABS: PLATELET MORPHOLOGY COMMENT INCREASED
[2019-04-11] MEDS ORDERED: FAMOTIDINE/PF 20 MG/2 ML VIAL IV SCH (21:00)
[2019-04-11] MEDS ORDERED: ONDANSETRON HCL 4 MG/2 ML VIAL IV PRN (21:00)
[2019-04-11] MEDS ORDERED: ACETAMINOPHEN 325 MG TAB PO PRN ×2 (21:00)
[2019-04-12 06:26] LABS: BASOPHILS % (AUTO) 1.6 % (0.0-5.0); EOSINOPHILS % (AUTO) 9.8 % (0.0-8.0); HEMATOCRIT 30.9 % (42-54); LYMPHOCYTES % (AUTO) 13.7 % (21.0-51.0); MEAN CORPUSCULAR HEMOGLOBIN 24.1 pg (27.0-33.0); MEAN CORPUSCULAR HGB CONC 32.1 g/dL (32.0-36.0); MEAN CORPUSCULAR VOLUME 75.2 fL (79-99); MONOCYTES % (AUTO) 11.6 % (3.0-13.0); NEUTROPHILS % (AUTO) 63.3 % (40.0-77.0); NUCLEATED RED BLOOD CELLS 0.1 % (0.0-0.19); RED CELL DISTRIBUTION WIDTH 23.8 % (11.0-15.5); WHITE BLOOD COUNT (AUTO) 6.1 K/uL (4.8-10.8)
[2019-04-12 06:28] LABS: PLATELET COUNT (AUTO) 717 K/uL (130-400)
[2019-04-12 06:38] VITALS: BP 163/79
[2019-04-12 06:44] LABS: CREATININE 0.5 mg/dL (0.5-1.5)
--- NOTE | 2019-04-12 07:00 | NUR ---
ER ADMIT TO ROOM 307 NOW,PT. WITH MR AND AND UNABLE TO PROVIDE INFO.SKIN WARM AND PALE LOOKING.WAS GIVEN 2 UNITS OF PRCS IN ER.SALINE LOCK LOCK IN PLACE TORT. FOREARM AND IS WELL SECURED. PT. IS CONTRACTED ARMS AND LEGS.
--- NOTE | 2019-04-12 11:33 | NUR ---
DCP: Spoke w sister Meaghan Bear via phone, she mentions that pt is a resident @ [facility] and dcp is for him to return there at discharge. Telephone consent given for [facility]. 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 Pt can go via facility van when ready. Primary nurse updated.
[2019-04-12 12:00] VITALS: BP 107/51
--- NOTE | 2019-04-12 17:15 | NUR ---
REPORT GIVEN TO NURSE DASILVA AND PT RETURNED TO [facility] VIA FACILITY VAN. SISTER MS. BAH CALLED FOR UP DATE TWICE BUT UNABLE TO VISIT. STATES NOTHING CHANGES WITH HIM.
== END 2019-04-12 17:20 ==
LOC: EDH 17:15 → EDHIP 17:16 → 3BH 04-12 05:51
PROVIDERS: ADMIT Hospitalist; ATTEND Hospitalist
DX: D64.9 Anemia, unspecified (principal); R79.89 Other specified abnormal findings of blood chemistry; R53.81 Other malaise; R47.01 Aphasia; G80.9 Cerebral palsy, unspecified; K21.9 Gastro-esophageal reflux disease without esophagitis; F03.90 Unspecified dementia, unspecified severity, without behavioral disturbance, psychotic disturbance, mood disturbance, and anxiety; I95.9 Hypotension, unspecified; Z79.899 Other long term (current) drug therapy; Z88.5 Allergy status to narcotic agent; Z91.018 Allergy to other foods
CPT/HCPCS: 36415 ×2; 36430 ×2; 80048; 80053; 82270; 82550; 83874; 84484; 85025 ×2; 86850; 86900; 86901; 86922; 93005; 96374; 99291; G0378 ×14; J3490; P9016 ×2

== ENCOUNTER 2019-04-30 20:09 | Emergency (ER) | payer MEDICAID ==
[~2019-04-30 20:09] MED LIST changes: -ACET-66 PO; -ASCO500T9 PO; +FERR325T22 PO; -FERS325 PO; +LACT10SO9 PO; -MULT1TAB70 PO
[2019-04-30 20:36] LABS: BASOPHILS % (AUTO) 1.2 % (0.0-5.0); EOSINOPHILS % (AUTO) 10.5 % (0.0-8.0); HEMATOCRIT 23.5 % (42-54); LYMPHOCYTES % (AUTO) 12.5 % (21.0-51.0); MEAN CORPUSCULAR HEMOGLOBIN 24.1 pg (27.0-33.0); MEAN CORPUSCULAR HGB CONC 30.7 g/dL (32.0-36.0); MEAN CORPUSCULAR VOLUME 78.6 fL (79-99); NEUTROPHILS % (AUTO) 67.8 % (40.0-77.0); NUCLEATED RED BLOOD CELLS 0.1 % (0.0-0.19); PLATELET COUNT (AUTO) 332 K/uL (130-400); RED BLOOD CELL COUNT(AUTO) 2.98 MIL/uL (4.50-6.20); RED CELL DISTRIBUTION WIDTH 21.1 % (11.0-15.5); WHITE BLOOD COUNT (AUTO) 4.7 K/uL (4.8-10.8)
[2019-04-30 20:46] LABS: CREATININE 0.8 mg/dL (0.5-1.5); POTASSIUM 4.2 mmol/L (3.5-5.1)
[2019-05-09] MEDS ORDERED: CLIN300C9 PO (14:48)
== END 2019-05-01 00:39 | disposition home or self-care (01) ==
LOC: EDH 20:09
DX: D64.9 Anemia, unspecified (principal); K21.9 Gastro-esophageal reflux disease without esophagitis; Z88.6 Allergy status to analgesic agent; Z91.018 Allergy to other foods
CPT/HCPCS: 36415; 80048; 85025; 86850; 86900; 86901

== ENCOUNTER 2019-09-02 13:57 | Emergency (ER) | payer MEDICAID ==
[~2019-09-02 13:57] MED LIST changes: +CARAL PO; -CRAN1TAB2 PO; +CYAN100092 PO; +FERR-6 PO; -FERR325T22 PO; +ONDA4TAB4 PO
[2019-09-02 14:37] LABS: BASOPHILS % (AUTO) 0.9 % (0.0-5.0); EOSINOPHILS % (AUTO) 9.7 % (0.0-8.0); HEMATOCRIT 24.2 % (42-54); LYMPHOCYTES % (AUTO) 14.5 % (21.0-51.0); MEAN CORPUSCULAR HEMOGLOBIN 21.5 pg (27.0-33.0); MEAN CORPUSCULAR HGB CONC 28.1 g/dL (32.0-36.0); MEAN CORPUSCULAR VOLUME 76.6 fL (79-99); NEUTROPHILS % (AUTO) 64.5 % (40.0-77.0); PLATELET COUNT (AUTO) 510 K/uL (130-400); RED BLOOD CELL COUNT(AUTO) 3.16 MIL/uL (4.50-6.20); RED CELL DISTRIBUTION WIDTH 22.5 % (11.0-15.5); WHITE BLOOD COUNT (AUTO) 4.6 K/uL (4.8-10.8)
[2019-09-02 14:53] LABS: INR 0.99 (0.85-1.15); PARTIAL THROMBOPLASTIN TIME 22.5 SEC (26.3-35.5); PROTHROMBIN TIME 10.7 SEC (9.6-11.6)
[2019-09-02 14:55] LABS: CREATININE 0.8 mg/dL (0.5-1.5); POTASSIUM 4.4 mmol/L (3.5-5.1)
[2019-09-02] MEDS ORDERED: SODIUM CHLORIDE 0.9% 500ML 500 ML IV ONE (19:31)
== END 2019-09-03 02:03 | disposition left against medical advice (07) ==
LOC: EDH 13:57
DX: D64.9 Anemia, unspecified (principal); F41.9 Anxiety disorder, unspecified; F32.9 Major depressive disorder, single episode, unspecified; K21.9 Gastro-esophageal reflux disease without esophagitis; Z91.018 Allergy to other foods; Z88.5 Allergy status to narcotic agent
CPT/HCPCS: 36415; 80048; 85025; 85610; 85730; 86850; 86900; 86901; 86922; 99283; P9016; J7040

== ENCOUNTER 2019-09-26 17:55 | Inpatient (IN) | payer MEDICAID ==
[~2019-09-26] VITALS: Ht 167.6 cm; Wt 32.2 kg
[2019-09-26 18:34] LABS: BASOPHILS % (AUTO) 0.7 % (0.0-5.0); EOSINOPHILS % (AUTO) 3.8 % (0.0-8.0); LYMPHOCYTES % (AUTO) 13.4 % (21.0-51.0); MEAN CORPUSCULAR HEMOGLOBIN 19.4 pg (27.0-33.0); MEAN CORPUSCULAR HGB CONC 27.7 g/dL (32.0-36.0); MEAN CORPUSCULAR VOLUME 70.1 fL (79-99); MONOCYTES % (AUTO) 19.3 % (3.0-13.0); NEUTROPHILS % (AUTO) 62.5 % (40.0-77.0); NUCLEATED RED BLOOD CELLS 0.7 % (0.0-0.19); PLATELET COUNT (AUTO) 303 K/uL (130-400); RED BLOOD CELL COUNT(AUTO) 2.94 MIL/uL (4.50-6.20); RED CELL DISTRIBUTION WIDTH 21.7 % (11.0-15.5); WHITE BLOOD COUNT (AUTO) 2.9 K/uL (4.8-10.8)
[2019-09-26 18:44] LABS: CREATININE 0.8 mg/dL (0.5-1.5); POTASSIUM 4.1 mmol/L (3.5-5.1)
[2019-09-26 18:46] LABS: HEMATOCRIT 20.6 % (42-54)
[2019-09-26] MEDS ORDERED: SODIUM CHLORIDE 0.9% 1000ML 1,000 ML IV SCH (19:10)
[2019-09-26] MEDS ORDERED: ONDANSETRON HCL 4 MG/2 ML VIAL IV PRN (19:15)
[2019-09-26] MEDS ORDERED: LACTULOSE 20 GM/30 ML UDCUP PO PRN (19:15)
[2019-09-26] MEDS ORDERED: ACETAMINOPHEN 325 MG TAB PO PRN (19:15)
[2019-09-26 19:38] LABS: BAND NEUTROPHILS % (MANUAL) 4 % (0-2); BASOPHILS % (MANUAL) 1 % (0-2); EOSINOPHILS % (MANUAL) 4 % (1-6); LYMPHOCYTES % (MANUAL) 5 % (22-44); MAN.DIFF COMMENT-IMPRESSION MANUAL DIFFERENTIAL; MONOCYTES % (MANUAL) 15 % (2-9); REACTIVE LYMPHOCYTES 2 % (0-0); SEGMENTED NEUTROPHILS % 69 % (40-70)
[2019-09-26] MEDS ORDERED: FAMOTIDINE/PF 20 MG/2 ML VIAL IV SCH (21:00)
[2019-09-26 21:03] LABS: % IRON SATURATION 2.6 % (30-44)
[2019-09-26] MEDS ORDERED: DEXTROSE 5 % AND 0.9 % NACL 1,000 ML IV ONE (21:52)
[2019-09-27] VITALS (15 sets, daily range): BP systolic 76–112; BP diastolic 32–78
[2019-09-27 04:45] LABS: APPEARANCE,URINE Clear (CLEAR); BILIRUBIN,URINE Negative (NEGATIVE); COLOR,URINE Yellow (YELLOW); GLUCOSE, URINE (UA) Negative (NEGATIVE); KETONES,URINE Negative (NEGATIVE); LEUKOCYTE ESTERASE ,URINE Negative (NEGATIVE); NITRATE,URINE Negative (NEGATIVE); OCCULT BLOOD,URINE Small (NEGATIVE); PH,URINE 5.5 (5.0-8.0); PROTEIN,URINE Negative (NEGATIVE)
[2019-09-27 04:50] LABS: BASOPHILS % (AUTO) 0.3 % (0.0-5.0); EOSINOPHILS % (AUTO) 2.3 % (0.0-8.0); HEMATOCRIT 22.3 % (42-54); LYMPHOCYTES % (AUTO) 12.9 % (21.0-51.0); MEAN CORPUSCULAR HGB CONC 27.4 g/dL (32.0-36.0); MEAN CORPUSCULAR VOLUME 69.5 fL (79-99); MONOCYTES % (AUTO) 16.4 % (3.0-13.0); NEUTROPHILS % (AUTO) 67.8 % (40.0-77.0); PLATELET COUNT (AUTO) 174 K/uL (130-400); RED BLOOD CELL COUNT(AUTO) 3.21 MIL/uL (4.50-6.20); RED CELL DISTRIBUTION WIDTH 22.7 % (11.0-15.5); WHITE BLOOD COUNT (AUTO) 3.1 K/uL (4.8-10.8)
[2019-09-27 04:54] LABS: CREATININE 0.8 mg/dL (0.5-1.5); POTASSIUM 4.6 mmol/L (3.5-5.1)
[2019-09-27 04:59] LABS: BACTERIA,URINE Rare /HPF (None Seen); SQUAMOUS EPITHELIAL CELL,UR Few /HPF (0-2); WBC,URINE None Seen /HPF (0-1)
[2019-09-27 05:53] LABS: ALBUMIN 3.3 g/dL (3.5-5.0); BILIRUBIN,TOTAL 0.4 mg/dL (0.2-1.0); TOTAL PROTEIN, SERUM 7.4 g/dL (6.0-8.3)
[2019-09-27 06:59] LABS: HEMATOCRIT 18.4 % (42-54)
--- NOTE | 2019-09-27 07:45 | NUR ---
Placed a call to Dr. 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 Order obtained, pt will be sent to the speciality unit.
[2019-09-27] MEDS: IRON SUCROSE COMPLEX 100 MG in SODIUM CHLORIDE 0.9% 50 ML IV SCH (09:00)
[2019-09-27] MEDS ORDERED: COMPOUND IV MISC 1 EACH IVSOLN MISC PRN (09:00)
--- NOTE | 2019-09-27 12:20 | NUR ---
Received patient from ED at this time. Patient in no apparent distress. No visible signs of pain noted. Vital signs stable. ED nurse states IV may have infiltrated on shift coordinator during blood transfusion. Upon assessment, left arm is firm to touch with visible size difference when compared to right. Pictures will be taken and placed in chart. Will continue to monitor.
--- NOTE | 2019-09-27 14:40 | NUR ---
Repeat H/H after transfusion 8.5/28.9. Will continue to monitor.
[2019-09-27 14:43] LABS: HEMATOCRIT 28.9 % (42-54)
[2019-09-27] MEDS: DEXTROSE 5%-WATER 1,000 ML IV SCH (16:00)
--- NOTE | 2019-09-27 17:29 | NUR ---
INITIAL: Spoke w FAISAL Meaghan Bear via phone this afternoon to discuss dcp. Per Mrs Bear, she is the decision maker for her brother Lito Claros as he suffers from cerebral palsy. 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 She mentions that he is bedbound and requires total assist w ADLs. Per Mrs Bear dcp is for pt to return to [facility]. She mentions that he has lived there for the past 6yrs and is unable to care for him at home. KAREN/PC Telephone consent obtained. CM to continue to follow and wait for Md recommendations. Addendum: 09/27/19 at 1733 by SIMON WILSON Amended: Links added.
[2019-09-27] MEDS: ACETAMINOPHEN 325 MG TAB PO PRN (22:02)
[2019-09-27] MEDS ORDERED: SODIUM CHLORIDE 0.9% 100 ML IV ONE (22:56)
[2019-09-27] MEDS: PANTOPRAZOLE SODIUM 80 MG in SODIUM CHLORIDE 0.9% 100 ML IV SCH (23:23)
[2019-09-28] VITALS (7 sets, daily range): BP systolic 92–137; BP diastolic 41–88
[2019-09-28 05:04] LABS: BASOPHILS % (AUTO) 0.3 % (0.0-5.0); EOSINOPHILS % (AUTO) 2.5 % (0.0-8.0); HEMATOCRIT 24.6 % (42-54); LYMPHOCYTES % (AUTO) 12.1 % (21.0-51.0); MEAN CORPUSCULAR HEMOGLOBIN 21.9 pg (27.0-33.0); MEAN CORPUSCULAR HGB CONC 29.7 g/dL (32.0-36.0); MEAN CORPUSCULAR VOLUME 73.7 fL (79-99); NEUTROPHILS % (AUTO) 71.5 % (40.0-77.0); NUCLEATED RED BLOOD CELLS 0.8 % (0.0-0.19); PLATELET COUNT (AUTO) 171 K/uL (130-400); RED BLOOD CELL COUNT(AUTO) 3.34 MIL/uL (4.50-6.20); WHITE BLOOD COUNT (AUTO) 3.5 K/uL (4.8-10.8)
[2019-09-28 05:16] LABS: CREATININE 0.7 mg/dL (0.5-1.5); POTASSIUM 3.7 mmol/L (3.5-5.1)
[2019-09-28] MEDS: IRON SUCROSE COMPLEX 100 MG in SODIUM CHLORIDE 0.9% 50 ML IV SCH (09:17)
[2019-09-28] MEDS ORDERED: IRON SUCROSE COMPLEX 200 MG in SODIUM CHLORIDE 0.9% 250 ML IV SCH (13:01)
[2019-09-28] MEDS: IRON SUCROSE COMPLEX 200 MG in SODIUM CHLORIDE 0.9% 250 ML IV SCH (16:36)
[2019-09-28] MEDS: DEXTROSE 5%-WATER 1,000 ML IV SCH (20:30)
[2019-09-29] VITALS: BP 103/55
[2019-09-29] MEDS: PANTOPRAZOLE SODIUM 80 MG in SODIUM CHLORIDE 0.9% 100 ML IV SCH ×2 (01:44→15:11)
[2019-09-29 04:00] VITALS: BP 102/62
--- NOTE | 2019-09-29 07:00 | NUR ---
RECEIVED REPORT FROM AP UMAÑA RN.
[2019-09-29 07:43] VITALS: BP 112/57
[2019-09-29] MEDS: DEXTROSE 5%-WATER 1,000 ML IV SCH (08:26)
--- NOTE | 2019-09-29 09:00 | NUR ---
ASSESSMENT COMPLETED AND DOCUMENTED. PT NON VERBAL. SITTER AT BEDSIDE, PERCY SANCHEZ, PCP DUE TO PATIENT BEING ANXIOUS AT TIMES AND ATTEMPTS TO PULL IV LINE. CURRENTLY APPEARS CALM AND AWAKE. UNABLE TO PLACE SCDS AT THIS TIME DUE TO PATIENT CONTRACTED AND UNABLE TO LAY STILL. INFORMED DR. SIDDIQUI. DISCONTINUED IV FLUIDS.
--- NOTE | 2019-09-29 09:25 | NUR ---
DR. SIDDIQUI SPOKE WITH PATIENTS SISTER, FRANCISCA BAH AND UPDATE GIVEN.
[2019-09-29 12:07] VITALS: BP 109/51
[2019-09-29] MEDS ORDERED: IRON SUCROSE COMPLEX 200 MG in SODIUM CHLORIDE 0.9% 250 ML IV SCH (12:21)
--- NOTE | 2019-09-29 12:30 | NUR ---
PATIENT BEING FED LUNCH MEAL BY ANUP GREER...PATIENT EATING 100% OF MEALS.
[2019-09-29 16:37] VITALS: BP 132/61
[2019-09-29] MEDS: ACETAMINOPHEN 325 MG TAB PO PRN (18:13)
--- NOTE | 2019-09-29 18:30 | NUR ---
TEMP 101.0 MEDICATED WITH TYLENOL 650 MG PO W/APPLESAUCE. ROOM COOLED DOWN. Addendum: 09/29/19 at 1840 by JOSE ORDOÑEZ RN RN MEANT TEMP 100.1 ORAL.
[2019-09-29] MEDS ORDERED: EPOETIN ALFA 10,000 UNIT/ML VIAL SQ SCH (21:45)
--- NOTE | 2019-09-29 22:45 | NUR ---
[facility] HOSPITALIST D/T PCP SHERIE, 1:1 SITTER FOR PT STATING PT HAS BEEN BITING HIS HAND, ROCKING HIMSELF AND PULLING AND BITING SHEETS AND CORDS. RECEIVED NEW ORDER LORAZEPAM 1MG IVP x1 FOR ANXIETY.
[2019-09-29] MEDS ORDERED: LORAZEPAM 2 MG/ML 1 ML VIAL ONE (22:59)
[2019-09-29] MEDS ORDERED: LORAZEPAM 2 MG/ML 1 ML VIAL IVP ONE (23:00)
[2019-09-29] MEDS: SENNOSIDES 8.6 MG TABLET PO SCH (23:06)
[2019-09-29] MEDS: DOCUSATE SODIUM 100 MG CAP PO SCH (23:06)
[2019-09-29] MEDS: SUCRALFATE 1 GM/10 ML PO SCH (23:07)
[2019-09-30] MEDS: PANTOPRAZOLE SODIUM 80 MG in SODIUM CHLORIDE 0.9% 100 ML IV SCH (01:48)
[2019-09-30 05:11] LABS: BASOPHILS % (AUTO) 0.4 % (0.0-5.0); HEMATOCRIT 26.6 % (42-54); LYMPHOCYTES % (AUTO) 8.7 % (21.0-51.0); MEAN CORPUSCULAR HEMOGLOBIN 21.4 pg (27.0-33.0); MEAN CORPUSCULAR HGB CONC 28.9 g/dL (32.0-36.0); MEAN CORPUSCULAR VOLUME 74.1 fL (79-99); MONOCYTES % (AUTO) 10.6 % (3.0-13.0); NEUTROPHILS % (AUTO) 76.5 % (40.0-77.0); NUCLEATED RED BLOOD CELLS 1.5 % (0.0-0.19); PLATELET COUNT (AUTO) 261 K/uL (130-400); RED BLOOD CELL COUNT(AUTO) 3.59 MIL/uL (4.50-6.20); RED CELL DISTRIBUTION WIDTH 25.5 % (11.0-15.5); WHITE BLOOD COUNT (AUTO) 2.6 K/uL (4.8-10.8)
[2019-09-30 05:26] LABS: CREATININE 0.7 mg/dL (0.5-1.5); MAGNESIUM 1.8 mg/dL (1.80-2.40); PHOSPHORUS 2.3 mg/dL (2.5-4.9); POTASSIUM 3.5 mmol/L (3.5-5.1)
[2019-09-30 05:47] LABS: % IRON SATURATION 17.6 % (30-44)
[2019-09-30 05:50] LABS: BAND NEUTROPHILS % (MANUAL) 2 % (0-2); EOSINOPHILS % (MANUAL) 1 % (1-6); LYMPHOCYTES % (MANUAL) 11 % (22-44); MAN.DIFF COMMENT-IMPRESSION MANUAL DIFFERENTIAL; MONOCYTES % (MANUAL) 13 % (2-9); REACTIVE LYMPHOCYTES 2 % (0-0); SEGMENTED NEUTROPHILS % 71 % (40-70)
[2019-09-30 05:51] LABS: PLATELET MORPHOLOGY COMMENT ADEQUATE
--- NOTE | 2019-09-30 06:51 | NUR ---
PT SLEPT FOR MOST OF THE NIGHT AFTER ADMINISTRATION OF LORAZEPAM 1MG IVP. SHERIE PCP CONTINUED WITH CARE FOR PT AND BEING 1:1 SITTER. AFEBRILE THROUGHOUT MY SHIFT. BED TO LOWEST LEVEL.
[2019-09-30 07:42] VITALS: BP 104/51
[2019-09-30] MEDS: SENNOSIDES 8.6 MG TABLET PO SCH ×2 (09:02→21:13)
[2019-09-30] MEDS: MULTIVITAMIN TABLET PO SCH (09:02)
[2019-09-30] MEDS: CYANOCOBALAMIN (VITAMIN B-12) 1,000 MCG TABLET PO SCH (09:02)
[2019-09-30] MEDS: DOCUSATE SODIUM 100 MG CAP PO SCH ×2 (09:02→21:13)
[2019-09-30] MEDS: FOLIC ACID 1 MG TABLET PO SCH (09:03)
[2019-09-30] MEDS: SUCRALFATE 1 GM/10 ML PO SCH ×4 (09:03→21:13)
[2019-09-30] MEDS: IRON SUCROSE COMPLEX 200 MG in SODIUM CHLORIDE 0.9% 250 ML IV SCH (11:24)
[2019-09-30 12:00] VITALS: BP 105/50
[2019-09-30 15:16] VITALS: BP 115/48
[2019-09-30] MEDS: ACETAMINOPHEN 325 MG TAB PO PRN ×2 (15:46→21:13)
[2019-09-30 19:55] VITALS: BP 99/43
[2019-09-30 19:57] VITALS: BP 99/43
--- NOTE | 2019-09-30 20:30 | NUR ---
PATIENT CALMLY RESTING IN BED. NO S/S OF DISTRESS.NO COUGH AT THIS TIME. OLIVA REHMAN AT BESIDE. PATIENT HAD A TEMP OF 100.7. TYLENOL PO WILL BE ADMINISTERED. BM X1. PATIENT INCONTINENT OF BOWEL AND BLADDER. WILL CONTINUE TO MONITOR.
[2019-09-30] MEDS: PYRIDOXINE HCL PO SCH (21:00)
[2019-09-30] MEDS: MELATONIN PO SCH (21:00)
[2019-09-30 23:52] VITALS: BP 116/66
[2019-10-01] VITALS (7 sets, daily range): BP systolic 91–147; BP diastolic 49–80
--- NOTE | 2019-10-01 00:55 | NUR ---
ORDERS PATIENT ANXIOUS, RESTLESS, COMBATIVE, BITING, AND BANGING HEAD. PER PRISCILA MOODY GIVE IV ATIVAN X1
[2019-10-01] MEDS ORDERED: LORAZEPAM 2 MG/ML 1 ML VIAL IVP ONE (01:00)
[2019-10-01] MEDS ORDERED: SODIUM CHLORIDE 0.9% 100 ML IV ONE (01:11)
[2019-10-01] MEDS ORDERED: LORAZEPAM 2 MG/ML 1 ML VIAL ONE (01:12)
[2019-10-01] MEDS: PANTOPRAZOLE SODIUM 80 MG in SODIUM CHLORIDE 0.9% 100 ML IV SCH (01:17)
[2019-10-01 05:32] LABS: BASOPHILS % (AUTO) 0.4 % (0.0-5.0); EOSINOPHILS % (AUTO) 4.8 % (0.0-8.0); HEMATOCRIT 30.9 % (42-54); LYMPHOCYTES % (AUTO) 24.2 % (21.0-51.0); MEAN CORPUSCULAR HEMOGLOBIN 21.6 pg (27.0-33.0); MEAN CORPUSCULAR HGB CONC 28.8 g/dL (32.0-36.0); MONOCYTES % (AUTO) 13.2 % (3.0-13.0); NEUTROPHILS % (AUTO) 55.6 % (40.0-77.0); NUCLEATED RED BLOOD CELLS 1.3 % (0.0-0.19); PLATELET COUNT (AUTO) 250 K/uL (130-400); RED BLOOD CELL COUNT(AUTO) 4.12 MIL/uL (4.50-6.20); RED CELL DISTRIBUTION WIDTH 27.2 % (11.0-15.5); WHITE BLOOD COUNT (AUTO) 2.3 K/uL (4.8-10.8)
[2019-10-01] MEDS: SUCRALFATE 1 GM/10 ML PO SCH ×4 (09:32→21:15)
[2019-10-01] MEDS: CYANOCOBALAMIN (VITAMIN B-12) 1,000 MCG TABLET PO SCH (09:33)
[2019-10-01] MEDS: DOCUSATE SODIUM 100 MG CAP PO SCH ×2 (09:33→21:15)
[2019-10-01] MEDS: FOLIC ACID 1 MG TABLET PO SCH (09:33)
[2019-10-01] MEDS: SENNOSIDES 8.6 MG TABLET PO SCH ×2 (09:33→21:15)
[2019-10-01] MEDS: MULTIVITAMIN TABLET PO SCH (09:33)
[2019-10-01 09:50] LABS: CREATININE 0.7 mg/dL (0.5-1.5); POTASSIUM 3.9 mmol/L (3.5-5.1)
[2019-10-01 09:54] LABS: ALBUMIN 2.6 g/dL (3.5-5.0); BILIRUBIN,TOTAL 0.4 mg/dL (0.2-1.0); CRP QUANTITATIVE 69.1 mg/L (0.00-9.0); TOTAL PROTEIN, SERUM 6.5 g/dL (6.0-8.3)
--- NOTE | 2019-10-01 11:00 | NUR ---
LABS DR LEON MADE AWARE OF DDIMER RESULTS
[2019-10-01] MEDS: IRON SUCROSE COMPLEX 200 MG in SODIUM CHLORIDE 0.9% 250 ML IV SCH (11:41)
--- NOTE | 2019-10-01 13:23 | NUR ---
DC PLAN SPOKE TO NURSE SAID PATIENT STABLE STILL ON PROTONIX GTT BUT SHOULD BE CHANGING TO PO. SENT UPDATES TO FACILITY. NEED COVID FORM AND EMS. PASRR DONE AND SENT. Addendum: 10/01/19 at 1326 by EVARISTO HEREDIA RN CM Amended: Links added.
[2019-10-01] MEDS: MELATONIN PO SCH (21:00)
[2019-10-01] MEDS: PYRIDOXINE HCL PO SCH (21:00)
[2019-10-02 04:00] VITALS: BP 124/72
[2019-10-02 05:33] LABS: BASOPHILS % (AUTO) 0.5 % (0.0-5.0); EOSINOPHILS % (AUTO) 7.3 % (0.0-8.0); HEMATOCRIT 28.9 % (42-54); LYMPHOCYTES % (AUTO) 21.2 % (21.0-51.0); MEAN CORPUSCULAR HEMOGLOBIN 22.3 pg (27.0-33.0); MEAN CORPUSCULAR HGB CONC 28.7 g/dL (32.0-36.0); MEAN CORPUSCULAR VOLUME 77.7 fL (79-99); MONOCYTES % (AUTO) 15.5 % (3.0-13.0); NEUTROPHILS % (AUTO) 53.4 % (40.0-77.0); PLATELET COUNT (AUTO) 244 K/uL (130-400); RED BLOOD CELL COUNT(AUTO) 3.72 MIL/uL (4.50-6.20); RED CELL DISTRIBUTION WIDTH 27.4 % (11.0-15.5); WHITE BLOOD COUNT (AUTO) 1.9 K/uL (4.8-10.8)
[2019-10-02 05:51] LABS: ALBUMIN 2.7 g/dL (3.5-5.0); BILIRUBIN,TOTAL 0.4 mg/dL (0.2-1.0); CREATININE 0.6 mg/dL (0.5-1.5); CRP QUANTITATIVE 43.6 mg/L (0.00-9.0); POTASSIUM 3.2 mmol/L (3.5-5.1); TOTAL PROTEIN, SERUM 6.4 g/dL (6.0-8.3)
[2019-10-02] MEDS: FOLIC ACID 1 MG TABLET PO SCH (07:40)
[2019-10-02] MEDS: MULTIVITAMIN TABLET PO SCH (07:40)
[2019-10-02] MEDS: SENNOSIDES 8.6 MG TABLET PO SCH ×2 (07:41→21:00)
[2019-10-02] MEDS: SUCRALFATE 1 GM/10 ML PO SCH ×4 (07:41→21:00)
[2019-10-02] MEDS: CYANOCOBALAMIN (VITAMIN B-12) 1,000 MCG TABLET PO SCH (07:41)
[2019-10-02] MEDS: DOCUSATE SODIUM 100 MG CAP PO SCH ×2 (07:42→21:00)
--- NOTE | 2019-10-02 08:00 | NUR ---
ASSESSMENT PT IS ALERT RESTING IN BED. NO VISIBLE SIGNS OF DISTRESS NOTED. BREATHING PATTERN IS EVEN AND UNLABORED. 1:1 SITTER AT BEDSIDE. CALL LIGHT WITHIN REACH, ISOLATION MAINTAINED.
[2019-10-02 08:10] VITALS: BP 99/65
[2019-10-02 12:00] VITALS: BP 95/44
[2019-10-02] MEDS ORDERED: EPOETIN ALFA 10,000 UNIT/ML VIAL SQ SCH (12:30)
[2019-10-02] MEDS ORDERED: POTASSIUM CHLORIDE 20 MEQ ERTAB PO SCH (12:30)
[2019-10-02] MEDS: IRON SUCROSE COMPLEX 100 MG in SODIUM CHLORIDE 0.9% 50 ML IV SCH (13:23)
--- NOTE | 2019-10-02 15:24 | NUR ---
HIRAM SCREEN - LOS X 6 Pt with Hx of CP. Pt with cachexia. Obtained Ht from previous admit: 5' 6". Calc. BMI = 11.3. Pt with Increased nutritional needs. Pt tolerating Heart healthy, Puree diet order with Ensure TID. Recommend to add 60mL ProMod BID. RD to continue to monitor. Please notify as additional nutrition concerns arise. Thank you. Addendum: 10/02/19 at [address] Amended: Links added.
[2019-10-02 17:25] VITALS: BP 102/49
[2019-10-02 19:00] VITALS: BP 110/80
[2019-10-02] MEDS: PYRIDOXINE HCL PO SCH (21:00)
[2019-10-02] MEDS: MELATONIN PO SCH (21:00)
[2019-10-02] MEDS: PANTOPRAZOLE SODIUM 40 MG TABLET.DR PO SCH (21:00)
--- NOTE | 2019-10-02 23:00 | NUR ---
patient agitated and restless increased restlessness/agitation noted. patient moaning and biting blankets, sitting up in bed and rocking back and forth. tylenol already given, patient repositioned, offered water/snack. patient was also bathed. hospitalist system configuration specialist paged orders received for lorazepam 0.5mg iv push x 1
[2019-10-03] VITALS: BP 113/82
--- NOTE | 2019-10-03 00:05 | NUR ---
relaxed post ativan admin patient is in a calmer and relaxed state. lying in bed, vss, in no apparent distress. resting quietly
[2019-10-03] MEDS ORDERED: LORAZEPAM 2 MG/ML 1 ML VIAL ONE (00:09)
[2019-10-03] MEDS ORDERED: LORAZEPAM 2 MG/ML 1 ML VIAL IVP ONE (00:15)
[2019-10-03 04:00] VITALS: BP 101/66
[2019-10-03 06:05] LABS: BASOPHILS % (AUTO) 0.5 % (0.0-5.0); EOSINOPHILS % (AUTO) 8.6 % (0.0-8.0); HEMATOCRIT 27.7 % (42-54); LYMPHOCYTES % (AUTO) 21.4 % (21.0-51.0); MEAN CORPUSCULAR HEMOGLOBIN 22.9 pg (27.0-33.0); MEAN CORPUSCULAR HGB CONC 28.9 g/dL (32.0-36.0); MEAN CORPUSCULAR VOLUME 79.1 fL (79-99); MONOCYTES % (AUTO) 17.1 % (3.0-13.0); NEUTROPHILS % (AUTO) 49.7 % (40.0-77.0); PLATELET COUNT (AUTO) 240 K/uL (130-400); RED CELL DISTRIBUTION WIDTH 28.8 % (11.0-15.5); WHITE BLOOD COUNT (AUTO) 1.9 K/uL (4.8-10.8)
[2019-10-03 06:22] LABS: ALBUMIN 2.5 g/dL (3.5-5.0); BILIRUBIN,TOTAL 0.3 mg/dL (0.2-1.0); CREATININE 0.6 mg/dL (0.5-1.5); POTASSIUM 3.9 mmol/L (3.5-5.1); TOTAL PROTEIN, SERUM 6.1 g/dL (6.0-8.3)
[2019-10-03] MEDS: MULTIVITAMIN TABLET PO SCH (09:00)
[2019-10-03] MEDS: SUCRALFATE 1 GM/10 ML PO SCH ×4 (09:00→20:26)
[2019-10-03] MEDS: CYANOCOBALAMIN (VITAMIN B-12) 1,000 MCG TABLET PO SCH (09:00)
[2019-10-03] MEDS: FOLIC ACID 1 MG TABLET PO SCH (09:00)
[2019-10-03] MEDS: DOCUSATE SODIUM 100 MG CAP PO SCH ×2 (09:00→21:00)
[2019-10-03] MEDS: IRON SUCROSE COMPLEX 100 MG in SODIUM CHLORIDE 0.9% 50 ML IV SCH (09:00)
[2019-10-03] MEDS: PANTOPRAZOLE SODIUM 40 MG TABLET.DR PO SCH ×2 (09:00→21:00)
[2019-10-03] MEDS: SENNOSIDES 8.6 MG TABLET PO SCH ×2 (09:00→21:00)
[2019-10-03 19:55] VITALS: BP 88/52
[2019-10-03 20:00] VITALS: BP 106/42
[2019-10-03] MEDS: MELATONIN PO SCH (20:26)
[2019-10-03] MEDS: PYRIDOXINE HCL PO SCH (20:26)
[2019-10-04] VITALS (8 sets, daily range): BP systolic 96–149; BP diastolic 44–81
--- NOTE | 2019-10-04 04:34 | NUR ---
Patient resting in bed. Sitter at bedside. Patient has episodes of restlessness. Tonight he isn't banging his head or biting tele monitor wires. No signs of distress noted. Will continue to monitor.
[2019-10-04 05:36] LABS: BASOPHILS % (AUTO) 0.5 % (0.0-5.0); EOSINOPHILS % (AUTO) 6.3 % (0.0-8.0); HEMATOCRIT 28.8 % (42-54); LYMPHOCYTES % (AUTO) 20.2 % (21.0-51.0); MEAN CORPUSCULAR HEMOGLOBIN 22.8 pg (27.0-33.0); MEAN CORPUSCULAR HGB CONC 28.5 g/dL (32.0-36.0); MONOCYTES % (AUTO) 15.9 % (3.0-13.0); NEUTROPHILS % (AUTO) 55.2 % (40.0-77.0); NUCLEATED RED BLOOD CELLS 1.4 % (0.0-0.19); PLATELET COUNT (AUTO) 250 K/uL (130-400); RED CELL DISTRIBUTION WIDTH 29.7 % (11.0-15.5); WHITE BLOOD COUNT (AUTO) 2.1 K/uL (4.8-10.8)
[2019-10-04 05:52] LABS: ALBUMIN 2.5 g/dL (3.5-5.0); BILIRUBIN,TOTAL 0.3 mg/dL (0.2-1.0); CREATININE 0.7 mg/dL (0.5-1.5); CRP QUANTITATIVE 45.5 mg/L (0.00-9.0); TOTAL PROTEIN, SERUM 6.4 g/dL (6.0-8.3)
--- NOTE | 2019-10-04 07:40 | NUR ---
ASSESSMENT RECEIVED PATIENT LAYING ON BED, ASLEEP BUT EASILY AROUSABLE. FULL ASSESSMENT DONE. PATIENT REMAINS ON ISOLATION FOR COVID1-19. 1:1 SITTER AT BEDSIDE. SIDERAILS UP X 3. BED AT LOWEST POSITION.
[2019-10-04 07:44] LABS: EOSINOPHILS % (MANUAL) 16 % (1-6); LYMPHOCYTES % (MANUAL) 16 % (22-44); MONOCYTES % (MANUAL) 4 % (2-9); SEGMENTED NEUTROPHILS % 64 % (40-70)
[2019-10-04 07:45] LABS: PLATELET MORPHOLOGY COMMENT ADEQUATE
--- NOTE | 2019-10-04 08:00 | NUR ---
TELE READS: SINUS BRADYCARDIA 59- SINUS RHYTHM 61.
[2019-10-04] MEDS: IRON SUCROSE COMPLEX 100 MG in SODIUM CHLORIDE 0.9% 50 ML IV SCH (08:05)
[2019-10-04] MEDS: DOCUSATE SODIUM 100 MG CAP PO SCH ×2 (08:06→22:22)
[2019-10-04] MEDS: CYANOCOBALAMIN (VITAMIN B-12) 1,000 MCG TABLET PO SCH (08:06)
[2019-10-04] MEDS: MULTIVITAMIN TABLET PO SCH (08:06)
[2019-10-04] MEDS: SENNOSIDES 8.6 MG TABLET PO SCH ×2 (08:06→22:22)
[2019-10-04] MEDS: PANTOPRAZOLE SODIUM 40 MG TABLET.DR PO SCH ×2 (08:06→22:22)
[2019-10-04] MEDS: FOLIC ACID 1 MG TABLET PO SCH (08:06)
[2019-10-04] MEDS: SUCRALFATE 1 GM/10 ML PO SCH (08:06)
--- NOTE | 2019-10-04 08:40 | NUR ---
PATIENT WAS FED BY ERIN MARCIAL CNA. ASPIRATION PRECAUTION OBSERVED. MORNING MEDS ADMINISTERED CRUSHED WITH VANILLA PUDDING.
[2019-10-04] MEDS: SUCRALFATE 1 GM TABLET PO SCH ×3 (12:24→22:22)
--- NOTE | 2019-10-04 13:00 | NUR ---
PER DR. WHELAN, PATIENT MAY BE DISCHARGED TO [facility]. PATIENT IS NOT GETTING ANY ANTIBIOTIC. CONTINUE ISOLATION FOR NOW.
--- NOTE | 2019-10-04 16:56 | NUR ---
PER DR. LEON, PATIENT MAY BE DISCHARGED BACK TO [facility].
[2019-10-04] MEDS ORDERED: LORAZEPAM 2 MG/ML 1 ML VIAL IVP PRN ×2 (18:00)
[2019-10-04] MEDS: PYRIDOXINE HCL PO SCH (21:00)
[2019-10-04] MEDS: MELATONIN PO SCH (21:00)
[2019-10-05 04:38] VITALS: BP 132/76
--- NOTE | 2019-10-05 05:27 | NUR ---
PT WITH 1:1 SITTER RIYA PCP, SLEPT ON AND OFF THROUGH THE NIGHT. HAD 2 EPISODES OF BANGING HIS HEAD, PROVIDED BLANKETS FOR RIYA TO APPLY ON RAILS FOR PTS SAFETY. NO BITING, NO PULLING. PT IS MOVING ALL OVER THE PLACE WHEN AWAKE. BED TO LOWEST LEVEL. SIDE RAILS UP. PT PUTS HIS HAND IN MOUTH AND SUCTIONING IS PERFORMED, CLEAR SCANT FLUID IS SUCTIONED.
[2019-10-05 06:12] LABS: ALBUMIN 2.7 g/dL (3.5-5.0); BILIRUBIN,TOTAL 0.4 mg/dL (0.2-1.0); CREATININE 0.7 mg/dL (0.5-1.5); CRP QUANTITATIVE 47.5 mg/L (0.00-9.0); POTASSIUM 3.6 mmol/L (3.5-5.1); TOTAL PROTEIN, SERUM 6.8 g/dL (6.0-8.3)
[2019-10-05 08:00] VITALS: BP 113/79
[2019-10-05] MEDS: PANTOPRAZOLE SODIUM 40 MG TABLET.DR PO SCH ×2 (09:42→22:12)
[2019-10-05] MEDS: MULTIVITAMIN TABLET PO SCH (09:42)
[2019-10-05] MEDS: SENNOSIDES 8.6 MG TABLET PO SCH ×2 (09:42→22:12)
[2019-10-05] MEDS: SUCRALFATE 1 GM TABLET PO SCH ×4 (09:42→22:12)
[2019-10-05] MEDS: FOLIC ACID 1 MG TABLET PO SCH (09:42)
[2019-10-05] MEDS: DOCUSATE SODIUM 100 MG CAP PO SCH ×2 (09:42→22:12)
[2019-10-05] MEDS: IRON SUCROSE COMPLEX 100 MG in SODIUM CHLORIDE 0.9% 50 ML IV SCH (09:42)
[2019-10-05] MEDS: CYANOCOBALAMIN (VITAMIN B-12) 1,000 MCG TABLET PO SCH (09:42)
[2019-10-05 11:30] VITALS: BP 130/54
[2019-10-05 15:30] VITALS: BP 125/50
[2019-10-05 19:11] VITALS: BP 105/50
[2019-10-05] MEDS ORDERED: MAGNESIUM 2GM PREMIX 50ML 50 ML IV SCH (20:15)
[2019-10-05] MEDS ORDERED: LIDOCAINE HCL-MPF 1% 2ML VIAL IV PRN (20:30)
[2019-10-05] MEDS ORDERED: POTASSIUM CHLORIDE 20 MEQ ERTAB PO PRN (20:30)
[2019-10-05] MEDS ORDERED: POTASSIUM CHLORIDE 20MEQ/100ML 100 ML IV PRN (20:30)
[2019-10-05] MEDS ORDERED: POTASSIUM CHLORIDE 10% ELIXIR 20 MEQ/15 ML UDCUP PO PRN (20:30)
[2019-10-05] MEDS: MELATONIN PO SCH (21:00)
[2019-10-05] MEDS: PYRIDOXINE HCL PO SCH (21:00)
[2019-10-06 01:14] VITALS: BP 107/61
[2019-10-06 03:44] VITALS: BP_SYST 102; BP_SYST 122; BP_DIAS 56; BP_DIAS 77
[2019-10-06 05:56] LABS: ALBUMIN 2.6 g/dL (3.5-5.0); BILIRUBIN,TOTAL 0.5 mg/dL (0.2-1.0); CREATININE 0.7 mg/dL (0.5-1.5); CRP QUANTITATIVE 59.6 mg/L (0.00-9.0); POTASSIUM 3.4 mmol/L (3.5-5.1); TOTAL PROTEIN, SERUM 6.7 g/dL (6.0-8.3)
[2019-10-06 07:30] VITALS: BP 100/53
[2019-10-06] MEDS: MULTIVITAMIN TABLET PO SCH (09:33)
[2019-10-06] MEDS: SUCRALFATE 1 GM TABLET PO SCH ×2 (09:33→12:38)
[2019-10-06] MEDS: DOCUSATE SODIUM 100 MG CAP PO SCH ×2 (09:34→21:00)
[2019-10-06] MEDS: SENNOSIDES 8.6 MG TABLET PO SCH ×2 (09:34→21:00)
[2019-10-06] MEDS: CYANOCOBALAMIN (VITAMIN B-12) 1,000 MCG TABLET PO SCH (09:34)
[2019-10-06] MEDS: FOLIC ACID 1 MG TABLET PO SCH (09:34)
[2019-10-06] MEDS: PANTOPRAZOLE SODIUM 40 MG TABLET.DR PO SCH (09:34)
[2019-10-06] MEDS: IRON SUCROSE COMPLEX 100 MG in SODIUM CHLORIDE 0.9% 50 ML IV SCH (09:35)
--- NOTE | 2019-10-06 10:54 | NUR ---
VIDHYA GONZALES SPOKE TO AVERY SENT LISAID FORM AND UPDATED MED REC. SAID WAITING FOR HEALTH DEPARTMENT TO CLEAR PATIENT TO RETURN TO FACILITY. THEY DO HAVE BED AVAILABLE. ONCE CLEARED WILL CALL WITH UPDATE. Addendum: 10/06/19 at 1056 by EVARISTO HEREDIA RN CM Amended: Links added.
[2019-10-06 12:00] VITALS: BP 106/53
--- NOTE | 2019-10-06 13:32 | NUR ---
VIDHYA VARELA CALLED BACK SAID PATIENT OKAY TO RETURN. LET NURSE KNOW. GAVE NURSE DAVID FORM, EMS, AND MED REC. EMS FORM FAXED TO [facility] AND TO [employer]. PATIENT IS BEDBOUND AND CONTRACTED. Addendum: 10/06/19 at 1334 by EVARISTO HEREDIA RN CM Amended: Links added.
--- NOTE | 2019-10-06 14:00 | NUR ---
LAB ORDER HOLD DC UNTIL LABS ARE DRAWN AND RESULTED PER DR SIDDIQUI
[2019-10-06 14:25] LABS: BASOPHILS % (AUTO) 0.3 % (0.0-5.0); EOSINOPHILS % (AUTO) 2.6 % (0.0-8.0); HEMATOCRIT 29.8 % (42-54); LYMPHOCYTES % (AUTO) 10.8 % (21.0-51.0); MEAN CORPUSCULAR HEMOGLOBIN 22.8 pg (27.0-33.0); MEAN CORPUSCULAR HGB CONC 28.2 g/dL (32.0-36.0); MONOCYTES % (AUTO) 15.2 % (3.0-13.0); NEUTROPHILS % (AUTO) 70.1 % (40.0-77.0); PLATELET COUNT (AUTO) 285 K/uL (130-400); RED BLOOD CELL COUNT(AUTO) 3.68 MIL/uL (4.50-6.20); RED CELL DISTRIBUTION WIDTH 30.7 % (11.0-15.5); WHITE BLOOD COUNT (AUTO) 3.8 K/uL (4.8-10.8)
[2019-10-06 14:39] LABS: CREATININE 0.8 mg/dL (0.5-1.5); POTASSIUM 3.5 mmol/L (3.5-5.1)
[2019-10-06 14:40] LABS: CRP QUANTITATIVE 68.8 mg/L (0.00-9.0)
--- NOTE | 2019-10-06 15:15 | NUR ---
LAB RESULTS REGARDING LAB RESULTS, PT CAN BE DISCHARGED TO SNF
--- NOTE | 2019-10-06 15:25 | NUR ---
SNF REPORT CALL PLACED TO [facility], PER NURSING STAFF AALIYAH, STATES WILL CLARIFY ADMISSION WITH HER BOSS; PER AALIYAH, STATES WILL CALL BACK REGARDING TRANSFER STATUS
[2019-10-06 15:36] LABS: ERYTHROCYTE SEDIMENTATION RATE 58 MM/HR (0-20)
[2019-10-06 16:00] VITALS: BP 114/66
--- NOTE | 2019-10-06 16:28 | NUR ---
DC PLAN SUPERIOR CALLED SAID THAT PATIENT NEEDED EMS APPROVAL FROM [facility] IN CHARGE OF HIS CASE AND THAT I NEEDED TO CALL HER FOR EMS AND FOR APPROVAL OF ADDITIONAL DAYS SINCE HE WAS ONLY APPROVED TILL THE . CALLED SAID THAT SHE TOLD THE OTHER NURSE THAT SHE JUST NEEDS TO SEND HER A TICKET FOR HER TO FINISH THE PROCESS AND FAR THE DAYS CASE TO BE REVIEWED TOMORROW. Addendum: 10/06/19 at 1634 by EVARISTO HEREDIA RN CM Amended: Links added.
--- NOTE | 2019-10-06 16:35 | NUR ---
REPORT REPORT CALLED TO [facility], SPOKE TO [place]. PENDING EMS TRANSPORTATION
[2019-10-06] MEDS: PYRIDOXINE HCL PO SCH (21:00)
[2019-10-06] MEDS: MELATONIN PO SCH (21:00)
--- NOTE | 2019-10-06 22:10 | NUR ---
pt was picked up by ems, transferred to [facility]. he is stable shows no signs of being in distress or in any forms of pain., given report to Carlos REYES of [facility]
[2019-10-07] MEDS ORDERED: LANSOPRAZOLE 15 MG SOLU TAB PO SCH (09:00)
== END 2019-10-06 22:10 | DRG 137 ==
LOC: EDH 17:55 → OBSVTOIN 17:56 → EDHIP 17:56 → 2BH 09-27 12:33 → 2DH 10-01 18:32
PROVIDERS: ADMIT Hospitalist; ATTEND Hospitalist
PROC: 30233N1 Transfusion of Nonautologous Red Blood Cells into Peripheral Vein, Percutaneous Approach (ICD-10-PCS; principal; 2019-09-26)
DX: U07.1 COVID-19 (principal); J96.91 Respiratory failure, unspecified with hypoxia; E87.1 Hypo-osmolality and hyponatremia; K92.2 Gastrointestinal hemorrhage, unspecified; D62 Acute posthemorrhagic anemia; J12.89 Other viral pneumonia; Z66 Do not resuscitate; G80.9 Cerebral palsy, unspecified; R62.50 Unspecified lack of expected normal physiological development in childhood; K21.9 Gastro-esophageal reflux disease without esophagitis; D72.819 Decreased white blood cell count, unspecified; M41.9 Scoliosis, unspecified; K44.9 Diaphragmatic hernia without obstruction or gangrene; E87.6 Hypokalemia; M62.58 Muscle wasting and atrophy, not elsewhere classified, other site; D50.9 Iron deficiency anemia, unspecified; M62.49 Contracture of muscle, multiple sites; Z83.3 Family history of diabetes mellitus; Z74.01 Bed confinement status; Z82.0 Family history of epilepsy and other diseases of the nervous system; Z82.3 Family history of stroke; Z82.49 Family history of ischemic heart disease and other diseases of the circulatory system; Z82.5 Family history of asthma and other chronic lower respiratory diseases; Z80.9 Family history of malignant neoplasm, unspecified; Z79.899 Other long term (current) drug therapy; Z88.5 Allergy status to narcotic agent; Z91.018 Allergy to other foods
CPT/HCPCS: 36415; 36430; 71045; 80048; 80053; 81001; 82270; 82728; 82948; 83540; 83550; 83615; 83735; 84100; 85014; 85018; 85025; 85378; 85651; 86140; 86850; 86900; 86901; 86922; 87633; 87635; 93005; C9113; G0378; J0885; J1756; J2060; J7042; J7050; J7070; P9016

== ENCOUNTER 2019-10-19 13:24 | Emergency (ER) | payer MEDICAID ==
[~2019-10-19 13:24] MED LIST changes: -FERR-6 PO; -LACT10SO9 PO; -ONDA4TAB4 PO
== END 2019-10-19 16:39 | disposition home or self-care (01) ==
LOC: EDH 13:24
DX: U07.1 COVID-19 (principal); J12.89 Other viral pneumonia; K21.9 Gastro-esophageal reflux disease without esophagitis; F41.9 Anxiety disorder, unspecified; F32.9 Major depressive disorder, single episode, unspecified; F03.90 Unspecified dementia, unspecified severity, without behavioral disturbance, psychotic disturbance, mood disturbance, and anxiety; Z88.6 Allergy status to analgesic agent; Z91.018 Allergy to other foods
CPT/HCPCS: 71045

== ENCOUNTER 2020-08-06 13:24 | Observation (INO) | payer MEDICAID ==
[~2020-08-06] VITALS: Ht 152.4 cm; Wt 37.6 kg
[2020-08-06 14:00] LABS: BASOPHILS % (AUTO) 0.9 % (0.0-5.0); EOSINOPHILS % (AUTO) 11.9 % (0.0-8.0); HEMATOCRIT 26.5 % (42-54); LYMPHOCYTES % (AUTO) 19.1 % (21.0-51.0); MEAN CORPUSCULAR HEMOGLOBIN 25.8 pg (27.0-33.0); MEAN CORPUSCULAR HGB CONC 28.3 g/dL (32.0-36.0); MEAN CORPUSCULAR VOLUME 91.1 fL (79-99); MONOCYTES % (AUTO) 11.3 % (3.0-13.0); NEUTROPHILS % (AUTO) 56.6 % (40.0-77.0); NUCLEATED RED BLOOD CELLS 0.5 % (0.0-0.19); PLATELET COUNT (AUTO) 380 K/uL (130-400); RED BLOOD CELL COUNT(AUTO) 2.91 MIL/uL (4.50-6.20); RED CELL DISTRIBUTION WIDTH 14.9 % (11.0-15.5); WHITE BLOOD COUNT (AUTO) 4.4 K/uL (4.8-10.8)
[2020-08-06 14:45] LABS: CREATININE 0.7 mg/dL (0.5-1.5); POTASSIUM 4.1 mmol/L (3.5-5.1)
[2020-08-06 14:50] LABS: ALBUMIN 2.7 g/dL (3.5-5.0); BILIRUBIN,TOTAL 0.1 mg/dL (0.2-1.0); TOTAL PROTEIN, SERUM 6.7 g/dL (6.0-8.3)
[2020-08-06] MEDS ORDERED: PANTOPRAZOLE 40 MG/VIAL ONE (16:10)
[2020-08-06] MEDS ORDERED: FOLIC ACID 1 MG TABLET ONE (16:11)
[2020-08-06 16:14] LABS: % IRON SATURATION 3.1 % (30-44); INR 1.06 (0.85-1.15); PROTHROMBIN TIME 11.5 SEC (9.6-11.6)
[2020-08-06 16:16] LABS: PARTIAL THROMBOPLASTIN TIME 22.1 SEC (26.3-35.5)
[2020-08-06 16:20] LABS: B-TYPE NATRIURETIC PEPTIDE 27 pg/mL (0-100)
[2020-08-06] MEDS ORDERED: COMPOUND IV MISC 1 EACH IVSOLN MISC PRN (17:00)
[2020-08-06 18:00] VITALS: BP 137/62
[2020-08-06] MEDS: FOLIC ACID 1 MG TABLET PO SCH (18:10)
[2020-08-06 19:00] VITALS: BP 125/51
[2020-08-06] MEDS ORDERED: LORAZEPAM 2 MG/ML 1 ML VIAL IVP SCH (20:30)
[2020-08-06] MEDS: PANTOPRAZOLE 40 MG TAB DR PO SCH (20:32)
[2020-08-06] MEDS: IRON SUCROSE COMPLEX 100 MG in 0.9%NACL 50ML 50 ML IV SCH (20:32)
[2020-08-06 21:30] LABS: HEMATOCRIT 26.7 % (42-54)
[2020-08-07] VITALS (7 sets, daily range): BP systolic 85–141; BP diastolic 48–83
[2020-08-07 05:51] LABS: BASOPHILS % (AUTO) 1.2 % (0.0-5.0); HEMATOCRIT 23.5 % (42-54); LYMPHOCYTES % (AUTO) 13.2 % (21.0-51.0); MEAN CORPUSCULAR HEMOGLOBIN 25.5 pg (27.0-33.0); MEAN CORPUSCULAR HGB CONC 28.9 g/dL (32.0-36.0); NEUTROPHILS % (AUTO) 62.3 % (40.0-77.0); PLATELET COUNT (AUTO) 365 K/uL (130-400); RED BLOOD CELL COUNT(AUTO) 2.67 MIL/uL (4.50-6.20); RED CELL DISTRIBUTION WIDTH 14.8 % (11.0-15.5); WHITE BLOOD COUNT (AUTO) 3.3 K/uL (4.8-10.8)
[2020-08-07] MEDS: SUCRALFATE 1 GM TABLET PO SCH ×4 (06:00→20:21)
[2020-08-07 06:20] LABS: ALBUMIN 2.8 g/dL (3.5-5.0); BILIRUBIN,TOTAL 0.2 mg/dL (0.2-1.0); CREATININE 0.7 mg/dL (0.5-1.5); POTASSIUM 3.9 mmol/L (3.5-5.1); TOTAL PROTEIN, SERUM 6.6 g/dL (6.0-8.3)
[2020-08-07] MEDS: PANTOPRAZOLE 40 MG TAB DR PO SCH ×2 (08:24→20:21)
[2020-08-07] MEDS: CYANOCOBALAMIN (VITAMIN B-12) 1,000 MCG TABLET PO SCH (08:24)
[2020-08-07] MEDS ORDERED: 0.9% NACL 250ML 250 ML IV ONE (09:13)
[2020-08-07 15:26] LABS: BASOPHILS % (AUTO) 0.8 % (0.0-5.0); HEMATOCRIT 25.9 % (42-54); LYMPHOCYTES % (AUTO) 10.9 % (21.0-51.0); MEAN CORPUSCULAR VOLUME 89.6 fL (79-99); MONOCYTES % (AUTO) 12.6 % (3.0-13.0); NEUTROPHILS % (AUTO) 70.5 % (40.0-77.0); NUCLEATED RED BLOOD CELLS 0.6 % (0.0-0.19); PLATELET COUNT (AUTO) 382 K/uL (130-400); RED BLOOD CELL COUNT(AUTO) 2.89 MIL/uL (4.50-6.20); RED CELL DISTRIBUTION WIDTH 14.7 % (11.0-15.5); WHITE BLOOD COUNT (AUTO) 5.2 K/uL (4.8-10.8)
[2020-08-07] MEDS: FOLIC ACID 1 MG TABLET PO SCH (15:47)
[2020-08-07] MEDS: IRON SUCROSE COMPLEX 100 MG in 0.9%NACL 50ML 50 ML IV SCH (20:21)
[2020-08-08] MEDS: SUCRALFATE 1 GM TABLET PO SCH ×3 (03:51→16:06)
[2020-08-08 04:05] VITALS: BP 90/55
[2020-08-08 05:47] LABS: BASOPHILS % (AUTO) 1.1 % (0.0-5.0); EOSINOPHILS % (AUTO) 18.1 % (0.0-8.0); HEMATOCRIT 26.7 % (42-54); LYMPHOCYTES % (AUTO) 19.4 % (21.0-51.0); MEAN CORPUSCULAR HEMOGLOBIN 25.4 pg (27.0-33.0); MEAN CORPUSCULAR HGB CONC 28.1 g/dL (32.0-36.0); MEAN CORPUSCULAR VOLUME 90.5 fL (79-99); MONOCYTES % (AUTO) 13.1 % (3.0-13.0); PLATELET COUNT (AUTO) 397 K/uL (130-400); RED BLOOD CELL COUNT(AUTO) 2.95 MIL/uL (4.50-6.20); RED CELL DISTRIBUTION WIDTH 14.9 % (11.0-15.5); WHITE BLOOD COUNT (AUTO) 3.6 K/uL (4.8-10.8)
[2020-08-08 06:13] LABS: ALBUMIN 2.5 g/dL (3.5-5.0); BILIRUBIN,TOTAL 0.3 mg/dL (0.2-1.0); CREATININE 0.6 mg/dL (0.5-1.5); POTASSIUM 3.6 mmol/L (3.5-5.1); TOTAL PROTEIN, SERUM 6.3 g/dL (6.0-8.3)
[2020-08-08 07:30] VITALS: BP 97/35
[2020-08-08] MEDS: PANTOPRAZOLE 40 MG TAB DR PO SCH (09:31)
[2020-08-08] MEDS: CYANOCOBALAMIN (VITAMIN B-12) 1,000 MCG TABLET PO SCH (09:31)
[2020-08-08] MEDS ORDERED: 0.9% NACL 250ML 250 ML IV ONE (10:46)
[2020-08-08 12:00] VITALS: BP 116/68
[2020-08-08 15:47] VITALS: BP 118/71
[2020-08-08] MEDS: FOLIC ACID 1 MG TABLET PO SCH (15:49)
[2020-08-08 16:25] LABS: HEMATOCRIT 31.3 % (42-54); MEAN CORPUSCULAR HGB CONC 29.1 g/dL (32.0-36.0); MEAN CORPUSCULAR VOLUME 89.4 fL (79-99); RED BLOOD CELL COUNT(AUTO) 3.5 MIL/uL (4.50-6.20); RED CELL DISTRIBUTION WIDTH 15.7 % (11.0-15.5); WHITE BLOOD COUNT (AUTO) 5.9 K/uL (4.8-10.8)
== END 2020-08-08 20:29 ==
LOC: EDH 13:24 → EDHIP 15:55 → 4DH 17:46
PROVIDERS: ADMIT Internal Medicine; ATTEND Internal Medicine
DX: D62 Acute posthemorrhagic anemia (principal); Z20.822 Contact with and (suspected) exposure to COVID-19; K92.2 Gastrointestinal hemorrhage, unspecified; D50.9 Iron deficiency anemia, unspecified; E43 Unspecified severe protein-calorie malnutrition; D72.819 Decreased white blood cell count, unspecified; R64 Cachexia; F03.91 Unspecified dementia, unspecified severity, with behavioral disturbance; F79 Unspecified intellectual disabilities; G80.9 Cerebral palsy, unspecified; I21.9 Acute myocardial infarction, unspecified; K21.00 Gastro-esophageal reflux disease with esophagitis, without bleeding; R47.01 Aphasia; Z86.16 Personal history of COVID-19; Z79.899 Other long term (current) drug therapy; Z88.5 Allergy status to narcotic agent; Z91.018 Allergy to other foods
CPT/HCPCS: 36415 ×3; 36430 ×2; 71045; 80053 ×3; 82270; 82550; 82728; 83540; 83550; 83690; 83880; 84484; 85014; 85018; 85025 ×4; 85027; 85610; 85730; 86850; 86900; 86901; 86922 ×2; 87426; 92610; 96361; 96365; 96366; 96375; 99284; C9113; G0378 ×46; J1756 ×3; J2060; J7050 ×2; P9016 ×2; U0003

== ENCOUNTER 2021-03-22 11:52 | Observation (INO) | payer MEDICAID ==
[~2021-03-22] VITALS: Ht 149.9 cm; Wt 40.8 kg
[2021-03-22 12:30] LABS: BASOPHILS % (AUTO) 0.6 % (0.0-5.0); EOSINOPHILS % (AUTO) 15.6 % (0.0-8.0); LYMPHOCYTES % (AUTO) 14.4 % (21.0-51.0); MEAN CORPUSCULAR HEMOGLOBIN 23.7 pg (27.0-33.0); MEAN CORPUSCULAR VOLUME 84.6 fL (79-99); MONOCYTES % (AUTO) 10.8 % (3.0-13.0); NUCLEATED RED BLOOD CELLS 0.4 % (0.0-0.19); PLATELET COUNT (AUTO) 223 K/uL (130-400); RED BLOOD CELL COUNT(AUTO) 2.28 MIL/uL (4.50-6.20); RED CELL DISTRIBUTION WIDTH 20.4 % (11.0-15.5); WHITE BLOOD COUNT (AUTO) 5.1 K/uL (4.8-10.8)
[2021-03-22 12:37] LABS: HEMATOCRIT 19.3 % (42-54)
[2021-03-22 12:38] LABS: CREATININE 0.7 mg/dL (0.5-1.5); POTASSIUM 3.8 mmol/L (3.5-5.1)
[2021-03-22 12:43] LABS: ALBUMIN 2.7 g/dL (3.5-5.0); BILIRUBIN,TOTAL 0.1 mg/dL (0.2-1.0); TOTAL PROTEIN, SERUM 6.1 g/dL (6.0-8.3)
[2021-03-22] MEDS ORDERED: PANTOPRAZOLE 40 MG/VIAL IVP SCH (14:00)
[2021-03-22] MEDS ORDERED: PANTOPRAZOLE 40MG INJ 80 MG in 0.9%NACL 100ML 100 ML IVP SCH (15:00)
[2021-03-22 18:07] LABS: HEMATOCRIT 25.4 % (42-54)
[2021-03-22 18:21] LABS: INR 1.13 (0.85-1.15); PROTHROMBIN TIME 12.2 SEC (9.6-11.6)
[2021-03-22 18:25] LABS: % IRON SATURATION 14.9 % (30-44)
[2021-03-22 23:12] LABS: HEMATOCRIT 28.4 % (42-54)
[2021-03-23 06:36] LABS: BASOPHILS % (AUTO) 1.2 % (0.0-5.0); EOSINOPHILS % (AUTO) 23.2 % (0.0-8.0); HEMATOCRIT 27.1 % (42-54); LYMPHOCYTES % (AUTO) 13.2 % (21.0-51.0); MEAN CORPUSCULAR HEMOGLOBIN 25.5 pg (27.0-33.0); MEAN CORPUSCULAR HGB CONC 30.6 g/dL (32.0-36.0); MEAN CORPUSCULAR VOLUME 83.4 fL (79-99); MONOCYTES % (AUTO) 10.4 % (3.0-13.0); NEUTROPHILS % (AUTO) 51.4 % (40.0-77.0); PLATELET COUNT (AUTO) 217 K/uL (130-400); RED BLOOD CELL COUNT(AUTO) 3.25 MIL/uL (4.50-6.20); RED CELL DISTRIBUTION WIDTH 18.2 % (11.0-15.5); WHITE BLOOD COUNT (AUTO) 5.1 K/uL (4.8-10.8)
[2021-03-23 06:43] LABS: CREATININE 0.7 mg/dL (0.5-1.5); POTASSIUM 3.7 mmol/L (3.5-5.1)
[2021-03-23] MEDS ORDERED: COMPOUND IV MISC 1 EACH IVSOLN MISC PRN (08:30)
[2021-03-23 08:33] LABS: % IRON SATURATION 5.3 % (30-44)
[2021-03-23 09:05] VITALS: BP 105/82
[2021-03-23] MEDS: IRON SUCROSE COMPLEX 100 MG in 0.9%NACL 50ML 50 ML IV SCH ×2 (11:20→11:40)
[2021-03-23 14:09] LABS: HEMATOCRIT 31.5 % (42-54)
== END 2021-03-23 15:10 | disposition home or self-care (01) ==
LOC: EDH 11:52 → EDHIP 11:53
PROVIDERS: ADMIT Internal Medicine; ATTEND Internal Medicine
DX: K92.2 Gastrointestinal hemorrhage, unspecified (principal); D50.0 Iron deficiency anemia secondary to blood loss (chronic); K21.9 Gastro-esophageal reflux disease without esophagitis; F79 Unspecified intellectual disabilities; M41.9 Scoliosis, unspecified; R47.01 Aphasia; R64 Cachexia; G80.9 Cerebral palsy, unspecified; E88.09 Other disorders of plasma-protein metabolism, not elsewhere classified; F03.90 Unspecified dementia, unspecified severity, without behavioral disturbance, psychotic disturbance, mood disturbance, and anxiety; R53.2 Functional quadriplegia; Z66 Do not resuscitate; Z79.899 Other long term (current) drug therapy
CPT/HCPCS: 36415 ×2; 36430; 80048; 80053; 82270; 83540 ×2; 83550 ×2; 84484; 85014 ×3; 85018 ×3; 85025 ×2; 85610; 86850; 86900; 86901; 86922; 92610; 96365; 96375; 99284; G0378 ×21; J1756; P9016 ×2; S0164 ×2; C9113

== ENCOUNTER 2021-04-13 10:42 | Emergency (ER) | payer MEDICAID ==
[2021-04-13 10:44] VITALS: BP_SYST 123
[2021-04-13 11:07] LABS: BASOPHILS % (AUTO) 1.1 % (0.0-5.0); EOSINOPHILS % (AUTO) 18.9 % (0.0-8.0); HEMATOCRIT 24.8 % (42-54); LYMPHOCYTES % (AUTO) 16.7 % (21.0-51.0); MEAN CORPUSCULAR HEMOGLOBIN 21.9 pg (27.0-33.0); MEAN CORPUSCULAR HGB CONC 27.4 g/dL (32.0-36.0); MEAN CORPUSCULAR VOLUME 79.7 fL (79-99); MONOCYTES % (AUTO) 11.3 % (3.0-13.0); NEUTROPHILS % (AUTO) 51.7 % (40.0-77.0); PLATELET COUNT (AUTO) 335 K/uL (130-400); RED BLOOD CELL COUNT(AUTO) 3.11 MIL/uL (4.50-6.20); RED CELL DISTRIBUTION WIDTH 19.4 % (11.0-15.5); WHITE BLOOD COUNT (AUTO) 3.5 K/uL (4.8-10.8)
[2021-04-13 11:34] LABS: CREATININE 0.7 mg/dL (0.5-1.5); POTASSIUM 4.4 mmol/L (3.5-5.1)
[2021-04-13 11:39] LABS: ALBUMIN 2.7 g/dL (3.5-5.0); BILIRUBIN,TOTAL 0.1 mg/dL (0.2-1.0); TOTAL PROTEIN, SERUM 6.1 g/dL (6.0-8.3)
[2021-04-13 13:02] VITALS: BP_DIAS 100
== END 2021-04-13 14:48 | disposition home or self-care (01) ==
LOC: EDH 10:42
DX: D64.9 Anemia, unspecified (principal); F03.90 Unspecified dementia, unspecified severity, without behavioral disturbance, psychotic disturbance, mood disturbance, and anxiety; K21.9 Gastro-esophageal reflux disease without esophagitis; Z88.5 Allergy status to narcotic agent; Z79.899 Other long term (current) drug therapy
CPT/HCPCS: 36415; 36430; 80053; 85025; 86850; 86900; 86901; 86923; 99285; P9016

== ENCOUNTER 2021-04-27 11:18 | Emergency (ER) | payer MEDICAID ==
[2021-04-27 12:08] LABS: BASOPHILS % (AUTO) 1.2 % (0.0-5.0); EOSINOPHILS % (AUTO) 18.8 % (0.0-8.0); HEMATOCRIT 22.9 % (42-54); LYMPHOCYTES % (AUTO) 17.1 % (21.0-51.0); MEAN CORPUSCULAR HEMOGLOBIN 21.9 pg (27.0-33.0); MEAN CORPUSCULAR HGB CONC 28.4 g/dL (32.0-36.0); MEAN CORPUSCULAR VOLUME 77.1 fL (79-99); MONOCYTES % (AUTO) 10.6 % (3.0-13.0); NEUTROPHILS % (AUTO) 52.1 % (40.0-77.0); PLATELET COUNT (AUTO) 191 K/uL (130-400); RED BLOOD CELL COUNT(AUTO) 2.97 MIL/uL (4.50-6.20); RED CELL DISTRIBUTION WIDTH 20.7 % (11.0-15.5)
[2021-04-27 12:18] LABS: CREATININE 0.6 mg/dL (0.5-1.5); POTASSIUM 4.3 mmol/L (3.5-5.1)
[2021-04-27 12:25] LABS: ALBUMIN 2.9 g/dL (3.5-5.0); BILIRUBIN,TOTAL 0.2 mg/dL (0.2-1.0); TOTAL PROTEIN, SERUM 6.1 g/dL (6.0-8.3)
[2021-04-27 12:44] LABS: INR 1.09 (0.85-1.15); PROTHROMBIN TIME 11.8 SEC (9.6-11.6)
[2021-04-27 18:34] VITALS: BP 117/52
== END 2021-04-27 18:40 | disposition home or self-care (01) ==
LOC: EDH 11:18
DX: D64.9 Anemia, unspecified (principal); K21.9 Gastro-esophageal reflux disease without esophagitis; Z79.899 Other long term (current) drug therapy; Z88.5 Allergy status to narcotic agent
CPT/HCPCS: 36415; 36430; 80053; 85025; 85610; 86850; 86900; 86901; 86923 ×2; 99292; 99291; P9016 ×2

== ENCOUNTER 2021-05-11 17:07 | Emergency (ER) | payer MEDICAID ==
[2021-05-11 18:09] LABS: BASOPHILS % (AUTO) 1.4 % (0.0-5.0); EOSINOPHILS % (AUTO) 14.1 % (0.0-8.0); HEMATOCRIT 21.6 % (42-54); LYMPHOCYTES % (AUTO) 10.3 % (21.0-51.0); MEAN CORPUSCULAR HEMOGLOBIN 23.8 pg (27.0-33.0); MEAN CORPUSCULAR HGB CONC 29.6 g/dL (32.0-36.0); MEAN CORPUSCULAR VOLUME 80.3 fL (79-99); NEUTROPHILS % (AUTO) 63.8 % (40.0-77.0); PLATELET COUNT (AUTO) 648 K/uL (130-400); RED BLOOD CELL COUNT(AUTO) 2.69 MIL/uL (4.50-6.20); RED CELL DISTRIBUTION WIDTH 21.5 % (11.0-15.5); WHITE BLOOD COUNT (AUTO) 7.4 K/uL (4.8-10.8)
[2021-05-11 18:22] LABS: POTASSIUM 4.2 mmol/L (3.5-5.1)
[2021-05-11 18:27] LABS: ALBUMIN 2.6 g/dL (3.5-5.0); TOTAL PROTEIN, SERUM 5.8 g/dL (6.0-8.3)
[2021-05-11 18:50] LABS: BILIRUBIN,TOTAL 0.1 mg/dL (0.2-1.0)
[2021-05-12 01:36] LABS: BASOPHILS % (AUTO) 1.6 % (0.0-5.0); EOSINOPHILS % (AUTO) 18.5 % (0.0-8.0); HEMATOCRIT 29.2 % (42-54); LYMPHOCYTES % (AUTO) 15.1 % (21.0-51.0); MEAN CORPUSCULAR HEMOGLOBIN 25.1 pg (27.0-33.0); MEAN CORPUSCULAR HGB CONC 30.8 g/dL (32.0-36.0); MEAN CORPUSCULAR VOLUME 81.6 fL (79-99); MONOCYTES % (AUTO) 10.5 % (3.0-13.0); NEUTROPHILS % (AUTO) 53.9 % (40.0-77.0); PLATELET COUNT (AUTO) 356 K/uL (130-400); RED BLOOD CELL COUNT(AUTO) 3.58 MIL/uL (4.50-6.20); RED CELL DISTRIBUTION WIDTH 18.9 % (11.0-15.5)
[2021-05-12 01:59] VITALS: BP 126/63
[2021-05-12 03:07] LABS: PLATELET MORPHOLOGY PLT CLUMPS PRESENT
== END 2021-05-12 03:18 | disposition home or self-care (01) ==
LOC: EDH 17:07
DX: D64.9 Anemia, unspecified (principal); Z79.899 Other long term (current) drug therapy; Z88.5 Allergy status to narcotic agent
CPT/HCPCS: 36415 ×2; 36430; 80053; 85025 ×2; 86850; 86900; 86901; 86923; 99285; P9016

== ENCOUNTER 2021-05-31 21:41 | Observation (INO) | payer MEDICAID ==
[2021-05-31 22:52] LABS: CREATININE 1.1 mg/dL (0.5-1.5)
[2021-05-31 22:54] LABS: INR 1.05 (0.85-1.15); PROTHROMBIN TIME 11.4 SEC (9.6-11.6)
[2021-05-31 22:55] LABS: PARTIAL THROMBOPLASTIN TIME 24.2 SEC (26.3-35.5)
[2021-05-31 22:57] LABS: ALBUMIN 2.6 g/dL (3.5-5.0); BILIRUBIN,TOTAL 0.1 mg/dL (0.2-1.0); TOTAL PROTEIN, SERUM 5.6 g/dL (6.0-8.3)
[2021-05-31 23:43] LABS: EOSINOPHILS % (AUTO) 19.7 % (0.0-8.0); LYMPHOCYTES % (AUTO) 18.1 % (21.0-51.0); MEAN CORPUSCULAR HEMOGLOBIN 21.4 pg (27.0-33.0); MEAN CORPUSCULAR HGB CONC 27.8 g/dL (32.0-36.0); MEAN CORPUSCULAR VOLUME 77.1 fL (79-99); MONOCYTES % (AUTO) 10.8 % (3.0-13.0); NEUTROPHILS % (AUTO) 49.8 % (40.0-77.0); PLATELET COUNT (AUTO) 190 K/uL (130-400); RED BLOOD CELL COUNT(AUTO) 2.71 MIL/uL (4.50-6.20); RED CELL DISTRIBUTION WIDTH 21.2 % (11.0-15.5); WHITE BLOOD COUNT (AUTO) 5.2 K/uL (4.8-10.8)
[2021-05-31 23:45] LABS: HEMATOCRIT 20.9 % (42-54)
[2021-06-01] MEDS ORDERED: 0.9%NACL 1000ML 1,000 ML IV SCH (00:30)
[2021-06-01] MEDS ORDERED: ACETAMINOPHEN 325 MG TAB PO PRN (00:30)
[2021-06-01] MEDS ORDERED: ONDANSETRON 4MG INJ IV PRN (00:30)
[2021-06-01] MEDS ORDERED: PHARMACY COMMUNICATION MISC SCH (02:00)
[2021-06-01 06:40] LABS: HEMATOCRIT 32.5 % (42-54)
[2021-06-01 06:51] LABS: % IRON SATURATION 8.4 % (30-44)
[2021-06-01 08:11] VITALS: BP 99/50
[2021-06-01] MEDS ORDERED: FAMOTIDINE 20MG VIAL IV SCH (09:00)
== END 2021-06-01 12:30 | disposition home or self-care (01) ==
LOC: EDH 21:41 → EDHIP 21:42
PROVIDERS: ADMIT Internal Medicine; ATTEND Internal Medicine
DX: D64.9 Anemia, unspecified (principal); E46 Unspecified protein-calorie malnutrition; F79 Unspecified intellectual disabilities; I21.9 Acute myocardial infarction, unspecified; G80.8 Other cerebral palsy; E77.8 Other disorders of glycoprotein metabolism; E83.51 Hypocalcemia; E88.09 Other disorders of plasma-protein metabolism, not elsewhere classified; Z68.1 Body mass index [BMI] 19.9 or less, adult; Z79.899 Other long term (current) drug therapy; Z98.890 Other specified postprocedural states
CPT/HCPCS: 36415 ×2; 36430; 71045; 80053; 83540; 83550; 85014; 85018; 85025; 85610; 85730; 86850; 86900; 86901; 86923 ×2; 93005; 96374; 99291; G0378 ×9; P9016 ×2; S0028; J3490; J7030

== ENCOUNTER 2021-06-21 12:14 | Emergency (ER) | payer MEDICAID ==
[2021-06-21 13:08] LABS: EOSINOPHILS % (AUTO) 18.8 % (0.0-8.0); HEMATOCRIT 24.7 % (42-54); LYMPHOCYTES % (AUTO) 15.6 % (21.0-51.0); MEAN CORPUSCULAR HEMOGLOBIN 20.5 pg (27.0-33.0); MEAN CORPUSCULAR HGB CONC 27.9 g/dL (32.0-36.0); MEAN CORPUSCULAR VOLUME 73.5 fL (79-99); MONOCYTES % (AUTO) 11.1 % (3.0-13.0); NEUTROPHILS % (AUTO) 52.9 % (40.0-77.0); PLATELET COUNT (AUTO) 301 K/uL (130-400); RED BLOOD CELL COUNT(AUTO) 3.36 MIL/uL (4.50-6.20); RED CELL DISTRIBUTION WIDTH 21.7 % (11.0-15.5); WHITE BLOOD COUNT (AUTO) 5.1 K/uL (4.8-10.8)
[2021-06-21 13:16] LABS: CREATININE 0.6 mg/dL (0.5-1.5); POTASSIUM 4.3 mmol/L (3.5-5.1)
[2021-06-21 13:21] LABS: ALBUMIN 2.7 g/dL (3.5-5.0); BILIRUBIN,TOTAL 0.1 mg/dL (0.2-1.0); TOTAL PROTEIN, SERUM 6.1 g/dL (6.0-8.3)
[2021-06-21] MEDS ORDERED: 0.9% NACL 500ML IV.SOLN 500 ML IV ONE (15:27)
[2021-06-21 20:11] VITALS: BP 108/66
== END 2021-06-21 20:05 | disposition home or self-care (01) ==
LOC: EDH 12:14
DX: D50.9 Iron deficiency anemia, unspecified (principal); K21.9 Gastro-esophageal reflux disease without esophagitis; Z88.5 Allergy status to narcotic agent; Z79.899 Other long term (current) drug therapy
CPT/HCPCS: 36415; 36430; 80053; 85025; 86850; 86900; 86901; 86923; 99285; J7040; P9016

== ENCOUNTER 2021-06-30 12:29 | Observation (INO) | payer MEDICAID ==
[~2021-06-30] VITALS: Ht 152.4 cm; Wt 40.8 kg
[2021-06-30 14:07] LABS: BASOPHILS % (AUTO) 0.7 % (0.0-5.0); EOSINOPHILS % (AUTO) 22.4 % (0.0-8.0); LYMPHOCYTES % (AUTO) 17.6 % (21.0-51.0); MEAN CORPUSCULAR HEMOGLOBIN 19.9 pg (27.0-33.0); MEAN CORPUSCULAR HGB CONC 27.2 g/dL (32.0-36.0); MEAN CORPUSCULAR VOLUME 73.3 fL (79-99); MONOCYTES % (AUTO) 12.5 % (3.0-13.0); NEUTROPHILS % (AUTO) 46.8 % (40.0-77.0); NUCLEATED RED BLOOD CELLS 0.7 % (0.0-0.19); PLATELET COUNT (AUTO) 207 K/uL (130-400); RED BLOOD CELL COUNT(AUTO) 2.81 MIL/uL (4.50-6.20); RED CELL DISTRIBUTION WIDTH 19.8 % (11.0-15.5); WHITE BLOOD COUNT (AUTO) 4.2 K/uL (4.8-10.8)
[2021-06-30 14:10] LABS: HEMATOCRIT 20.6 % (42-54)
[2021-06-30 14:19] LABS: CREATININE 0.6 mg/dL (0.5-1.5); POTASSIUM 4.3 mmol/L (3.5-5.1)
[2021-06-30 14:23] LABS: ALBUMIN 2.5 g/dL (3.5-5.0); BILIRUBIN,TOTAL 0.1 mg/dL (0.2-1.0); TOTAL PROTEIN, SERUM 5.8 g/dL (6.0-8.3)
[2021-06-30 16:06] LABS: % IRON SATURATION 2.1 % (30-44)
[2021-06-30] MEDS: PANTOPRAZOLE 40 MG/VIAL IVP SCH ×2 (16:08→22:31)
[2021-06-30] MEDS: LACTATED RINGERS 1000ML 1,000 ML IV SCH (16:08)
[2021-06-30 22:45] VITALS: BP 122/61
[2021-07-01 04:05] VITALS: BP 117/62
[2021-07-01 08:03] LABS: BASOPHILS % (AUTO) 1.6 % (0.0-5.0); EOSINOPHILS % (AUTO) 24.9 % (0.0-8.0); HEMATOCRIT 32.9 % (42-54); LYMPHOCYTES % (AUTO) 16.8 % (21.0-51.0); MEAN CORPUSCULAR HEMOGLOBIN 23.8 pg (27.0-33.0); MEAN CORPUSCULAR HGB CONC 28.3 g/dL (32.0-36.0); MEAN CORPUSCULAR VOLUME 84.1 fL (79-99); MONOCYTES % (AUTO) 10.5 % (3.0-13.0); NEUTROPHILS % (AUTO) 45.8 % (40.0-77.0); PLATELET COUNT (AUTO) 183 K/uL (130-400); RED BLOOD CELL COUNT(AUTO) 3.91 MIL/uL (4.50-6.20); RED CELL DISTRIBUTION WIDTH 19.7 % (11.0-15.5); WHITE BLOOD COUNT (AUTO) 4.5 K/uL (4.8-10.8)
[2021-07-01 08:18] LABS: CREATININE 0.6 mg/dL (0.5-1.5); POTASSIUM 3.9 mmol/L (3.5-5.1)
[2021-07-01] MEDS: PANTOPRAZOLE 40 MG/VIAL IVP SCH (08:31)
[2021-07-01] MEDS: LACTATED RINGERS 1000ML 1,000 ML IV SCH (08:31)
[2021-07-01 09:41] VITALS: BP 91/56
[2021-07-01] MEDS ORDERED: IRON SUCROSE COMPLEX 100 MG in 0.9%NACL 50ML 50 ML IV SCH (10:14)
[2021-07-01] MEDS ORDERED: EPOETIN ALFA-EPBX (NON-ESRD) 10,000 UNIT/ML VIAL SQ SCH (10:30)
[2021-07-01] MEDS ORDERED: COMPOUND IV MISC 1 EACH IVSOLN MISC PRN (10:30)
[2021-07-01 13:31] VITALS: BP 111/59
[2021-07-01 16:51] VITALS: BP 103/41
== END 2021-07-01 18:05 ==
LOC: EDH 12:29 → EDHIP 12:30 → 4DH 22:44
PROVIDERS: ADMIT Internal Medicine; ATTEND Internal Medicine
DX: K92.2 Gastrointestinal hemorrhage, unspecified (principal); D50.0 Iron deficiency anemia secondary to blood loss (chronic); E43 Unspecified severe protein-calorie malnutrition; F79 Unspecified intellectual disabilities; G80.9 Cerebral palsy, unspecified; K20.90 Esophagitis, unspecified without bleeding; K21.9 Gastro-esophageal reflux disease without esophagitis; Z79.899 Other long term (current) drug therapy; Z98.890 Other specified postprocedural states
CPT/HCPCS: 36415 ×2; 36430; 80048; 80053; 82728; 83540; 83550; 84484; 85025 ×2; 86850; 86900; 86901; 86923; 93005; 96361 ×2; 96365; 96375; 96376 ×2; 99291; G0378 ×25; J1756; J7120; P9016 ×2; Q5106; S0164 ×3; C9113

== ENCOUNTER 2021-07-26 11:19 | Emergency (ER) | payer MEDICAID ==
[~2021-07-26] VITALS: Ht 149.9 cm; Wt 54.4 kg
[2021-07-26 11:46] VITALS: BP 118/63
[2021-07-26 12:14] LABS: BASOPHILS % (AUTO) 1.1 % (0.0-5.0); EOSINOPHILS % (AUTO) 19.8 % (0.0-8.0); HEMATOCRIT 22.7 % (42-54); LYMPHOCYTES % (AUTO) 15.6 % (21.0-51.0); MEAN CORPUSCULAR HEMOGLOBIN 21.1 pg (27.0-33.0); MEAN CORPUSCULAR HGB CONC 27.8 g/dL (32.0-36.0); MEAN CORPUSCULAR VOLUME 75.9 fL (79-99); MONOCYTES % (AUTO) 9.4 % (3.0-13.0); NEUTROPHILS % (AUTO) 53.4 % (40.0-77.0); PLATELET COUNT (AUTO) 340 K/uL (130-400); RED BLOOD CELL COUNT(AUTO) 2.99 MIL/uL (4.50-6.20); RED CELL DISTRIBUTION WIDTH 20.4 % (11.0-15.5); WHITE BLOOD COUNT (AUTO) 5.5 K/uL (4.8-10.8)
[2021-07-26 12:20] LABS: CREATININE 0.6 mg/dL (0.5-1.5); POTASSIUM 4.1 mmol/L (3.5-5.1)
[2021-07-26 12:24] LABS: ALBUMIN 2.7 g/dL (3.5-5.0); BILIRUBIN,TOTAL 0.1 mg/dL (0.2-1.0); TOTAL PROTEIN, SERUM 6.3 g/dL (6.0-8.3)
== END 2021-07-26 18:22 ==
LOC: EDH 11:19
DX: D64.89 Other specified anemias (principal); K21.9 Gastro-esophageal reflux disease without esophagitis; F03.90 Unspecified dementia, unspecified severity, without behavioral disturbance, psychotic disturbance, mood disturbance, and anxiety; Z98.890 Other specified postprocedural states; Z88.5 Allergy status to narcotic agent
CPT/HCPCS: 36415; 36430; 80053; 85025; 86850; 86900; 86901; 86923; 99285; P9016

== ENCOUNTER 2021-08-03 19:53 | Emergency (ER) | payer MEDICAID ==
[2021-08-03 21:12] LABS: EOSINOPHILS % (AUTO) 26.3 % (0.0-8.0); HEMATOCRIT 25.1 % (42-54); LYMPHOCYTES % (AUTO) 19.9 % (21.0-51.0); MEAN CORPUSCULAR HEMOGLOBIN 21.2 pg (27.0-33.0); MEAN CORPUSCULAR HGB CONC 27.5 g/dL (32.0-36.0); MEAN CORPUSCULAR VOLUME 77.2 fL (79-99); NEUTROPHILS % (AUTO) 43.4 % (40.0-77.0); PLATELET COUNT (AUTO) 203 K/uL (130-400); RED BLOOD CELL COUNT(AUTO) 3.25 MIL/uL (4.50-6.20); RED CELL DISTRIBUTION WIDTH 22.2 % (11.0-15.5); WHITE BLOOD COUNT (AUTO) 5.1 K/uL (4.8-10.8)
[2021-08-03 21:23] LABS: CREATININE 0.7 mg/dL (0.5-1.5); POTASSIUM 5.1 mmol/L (3.5-5.1)
[2021-08-03 21:29] LABS: ALBUMIN 2.6 g/dL (3.5-5.0); BILIRUBIN,TOTAL 0.2 mg/dL (0.2-1.0); TOTAL PROTEIN, SERUM 6.3 g/dL (6.0-8.3)
[2021-08-04 01:30] VITALS: BP 107/84
[2021-08-04 02:14] LABS: HEMATOCRIT 32.1 % (42-54)
== END 2021-08-04 03:20 | disposition home or self-care (01) ==
LOC: EDH 19:53
DX: D62 Acute posthemorrhagic anemia (principal); D53.9 Nutritional anemia, unspecified; G80.8 Other cerebral palsy; Z74.01 Bed confinement status; K21.9 Gastro-esophageal reflux disease without esophagitis; F03.90 Unspecified dementia, unspecified severity, without behavioral disturbance, psychotic disturbance, mood disturbance, and anxiety; Z88.5 Allergy status to narcotic agent; Z88.8 Allergy status to other drugs, medicaments and biological substances; Z79.899 Other long term (current) drug therapy
CPT/HCPCS: 36415 ×2; 36430; 80053; 85014; 85018; 85025; 86850; 86900; 86901; 86923; 99285; P9016

== ENCOUNTER 2021-08-18 11:25 | Inpatient (IN) | payer MEDICAID ==
[~2021-08-18] VITALS: Ht 165.1 cm; Wt 33.6 kg
[2021-08-18 11:59] LABS: BASOPHILS % (AUTO) 0.9 % (0.0-5.0); EOSINOPHILS % (AUTO) 14.5 % (0.0-8.0); LYMPHOCYTES % (AUTO) 11.8 % (21.0-51.0); MEAN CORPUSCULAR HEMOGLOBIN 22.1 pg (27.0-33.0); MEAN CORPUSCULAR HGB CONC 27.8 g/dL (32.0-36.0); MEAN CORPUSCULAR VOLUME 79.3 fL (79-99); MONOCYTES % (AUTO) 11.6 % (3.0-13.0); NEUTROPHILS % (AUTO) 60.8 % (40.0-77.0); PLATELET COUNT (AUTO) 575 K/uL (130-400); RED CELL DISTRIBUTION WIDTH 22.4 % (11.0-15.5); WHITE BLOOD COUNT (AUTO) 5.6 K/uL (4.8-10.8)
[2021-08-18 12:11] LABS: ALBUMIN 2.6 g/dL (3.5-5.0); BILIRUBIN,TOTAL 0.1 mg/dL (0.2-1.0); CREATININE 0.6 mg/dL (0.5-1.5); POTASSIUM 4.3 mmol/L (3.5-5.1); TOTAL PROTEIN, SERUM 5.6 g/dL (6.0-8.3)
[2021-08-18 14:11] LABS: INR 1.09 (0.85-1.15); PROTHROMBIN TIME 11.8 SEC (9.6-11.6)
[2021-08-18 14:12] LABS: PARTIAL THROMBOPLASTIN TIME 25.7 SEC (26.3-35.5)
[2021-08-18] MEDS ORDERED: PANTOPRAZOLE 40 MG/VIAL IVP ONE (14:30)
[2021-08-18] MEDS ORDERED: CETI10TA87 PO (15:13)
[2021-08-18] MEDS ORDERED: FAMO20TA8 PO (15:13)
[2021-08-18] MEDS ORDERED: FERSL PO (15:13)
[2021-08-18] MEDS: PANTOPRAZOLE 40MG INJ 80 MG in 0.9%NACL 100ML 100 ML IV SCH (15:30)
[2021-08-18] MEDS ORDERED: ONDANSETRON 4MG INJ IV PRN (15:30)
[2021-08-18] MEDS ORDERED: ACETAMINOPHEN 325 MG TAB PO PRN ×2 (15:30)
[2021-08-18] MEDS ORDERED: PANTOPRAZOLE 40 MG/VIAL ONE (16:55)
[2021-08-18] MEDS: LACTATED RINGERS 1000ML 1,000 ML IV SCH (17:00)
[2021-08-18 19:57] LABS: HEMATOCRIT 28.4 % (42-54)
[2021-08-19] VITALS (8 sets, daily range): BP systolic 72–97; BP diastolic 39–55
[2021-08-19] MEDS: LACTATED RINGERS 1000ML 1,000 ML IV SCH ×2 (02:16→14:17)
[2021-08-19] MEDS ORDERED: IRON SUCROSE COMPLEX 300 MG in 0.9%NACL 50ML 50 ML IV SCH (09:00)
[2021-08-19] MEDS: PANTOPRAZOLE 40MG INJ 80 MG in 0.9%NACL 100ML 100 ML IV SCH (10:46)
[2021-08-19 12:03] LABS: ALBUMIN 2.3 g/dL (3.5-5.0); CREATININE 0.5 mg/dL (0.5-1.5); POTASSIUM 3.8 mmol/L (3.5-5.1)
[2021-08-19 12:04] LABS: HEMATOCRIT 27.2 % (42-54); MEAN CORPUSCULAR HGB CONC 29.8 g/dL (32.0-36.0); MEAN CORPUSCULAR VOLUME 80.5 fL (79-99); RED BLOOD CELL COUNT(AUTO) 3.38 MIL/uL (4.50-6.20); RED CELL DISTRIBUTION WIDTH 21.2 % (11.0-15.5); WHITE BLOOD COUNT (AUTO) 5.1 K/uL (4.8-10.8)
[2021-08-19] MEDS ORDERED: PROPOFOL 10 MG/ML 20ML VIAL IV ONE ×2 (13:07→13:11)
[2021-08-19] MEDS ORDERED: EPHEDRINE SULFATE 50 MG/ML AMPULE ONE (13:32)
[2021-08-19] MEDS ORDERED: PANT40TA PO (15:21)
== END 2021-08-19 18:39 | DRG 241 ==
LOC: EDH 11:25 → EDHIP 11:26 → UNDOADMIN 15:20
PROVIDERS: ADMIT Hospitalist; ATTEND Hospitalist
PROC: 30233N1 Transfusion of Nonautologous Red Blood Cells into Peripheral Vein, Percutaneous Approach (ICD-10-PCS; 2021-08-18)
PROC: 0DB58ZX Excision of Esophagus, Via Natural or Artificial Opening Endoscopic, Diagnostic (ICD-10-PCS; principal; 2021-08-19)
PROC: 0DB78ZX Excision of Stomach, Pylorus, Via Natural or Artificial Opening Endoscopic, Diagnostic (ICD-10-PCS; 2021-08-19)
PROC: 0DB68ZX Excision of Stomach, Via Natural or Artificial Opening Endoscopic, Diagnostic (ICD-10-PCS; 2021-08-19)
PROC: 0DB68ZZ Excision of Stomach, Via Natural or Artificial Opening Endoscopic (ICD-10-PCS; 2021-08-19)
DX: K29.01 Acute gastritis with bleeding (principal); E43 Unspecified severe protein-calorie malnutrition; K22.11 Ulcer of esophagus with bleeding; D62 Acute posthemorrhagic anemia; K31.7 Polyp of stomach and duodenum; R47.01 Aphasia; F03.90 Unspecified dementia, unspecified severity, without behavioral disturbance, psychotic disturbance, mood disturbance, and anxiety; K21.00 Gastro-esophageal reflux disease with esophagitis, without bleeding; K44.9 Diaphragmatic hernia without obstruction or gangrene; D50.9 Iron deficiency anemia, unspecified; F79 Unspecified intellectual disabilities; G80.9 Cerebral palsy, unspecified; Z68.1 Body mass index [BMI] 19.9 or less, adult; Z88.5 Allergy status to narcotic agent; Z91.018 Allergy to other foods; Z82.5 Family history of asthma and other chronic lower respiratory diseases; Z83.3 Family history of diabetes mellitus; Z80.9 Family history of malignant neoplasm, unspecified; Z82.3 Family history of stroke; Z82.0 Family history of epilepsy and other diseases of the nervous system; Z82.49 Family history of ischemic heart disease and other diseases of the circulatory system
CPT/HCPCS: 36415; 43239; 80048; 80053; 82040; 82270; 85014; 85018; 85025; 85027; 85610; 85730; 86850; 86900; 86901; 86923; 87635; A4606; C9113; G0378; J1756; J2704; J3490; J7030; J7120; P9016

== ENCOUNTER 2021-09-12 14:57 | Observation (INO) | payer MEDICAID ==
[~2021-09-12] VITALS: Ht 134.6 cm; Wt 36.3 kg
[~2021-09-12 14:57] MED LIST changes: -ACET-2743 PO; +CETI10TA87 PO; -DOCU-116 PO; +FERSL PO; +PANT40TA PO
[2021-09-12 18:01] LABS: EOSINOPHILS % (AUTO) 14.6 % (0.0-8.0); HEMATOCRIT 21.8 % (42-54); LYMPHOCYTES % (AUTO) 14.6 % (21.0-51.0); MEAN CORPUSCULAR HEMOGLOBIN 20.5 pg (27.0-33.0); MEAN CORPUSCULAR HGB CONC 26.6 g/dL (32.0-36.0); MONOCYTES % (AUTO) 9.3 % (3.0-13.0); NEUTROPHILS % (AUTO) 59.8 % (40.0-77.0); NUCLEATED RED BLOOD CELLS 0.5 % (0.0-0.19); PLATELET COUNT (AUTO) 303 K/uL (130-400); RED BLOOD CELL COUNT(AUTO) 2.83 MIL/uL (4.50-6.20); RED CELL DISTRIBUTION WIDTH 21.5 % (11.0-15.5); WHITE BLOOD COUNT (AUTO) 4.2 K/uL (4.8-10.8)
[2021-09-12 18:09] LABS: CREATININE 0.7 mg/dL (0.5-1.5); POTASSIUM 4.4 mmol/L (3.5-5.1)
[2021-09-12 18:14] LABS: ALBUMIN 2.8 g/dL (3.5-5.0); BILIRUBIN,TOTAL 0.1 mg/dL (0.2-1.0); TOTAL PROTEIN, SERUM 6.2 g/dL (6.0-8.3)
[2021-09-12] MEDS ORDERED: 0.9%NACL 1000ML 1,000 ML IV SCH (21:00)
[2021-09-12] MEDS ORDERED: ACETAMINOPHEN 325 MG TAB PO PRN (21:00)
[2021-09-12] MEDS ORDERED: ONDANSETRON 4MG INJ IV PRN (21:00)
[2021-09-12] MEDS: PANTOPRAZOLE 40 MG/VIAL IVP SCH (21:00)
[2021-09-12 21:13] LABS: INR 1.1 (0.85-1.15); PROTHROMBIN TIME 11.9 SEC (9.6-11.6)
[2021-09-13 07:53] LABS: BASOPHILS % (AUTO) 1.1 % (0.0-5.0); EOSINOPHILS % (AUTO) 10.3 % (0.0-8.0); LYMPHOCYTES % (AUTO) 11.1 % (21.0-51.0); MEAN CORPUSCULAR HEMOGLOBIN 23.6 pg (27.0-33.0); MEAN CORPUSCULAR HGB CONC 29.1 g/dL (32.0-36.0); MONOCYTES % (AUTO) 11.1 % (3.0-13.0); NEUTROPHILS % (AUTO) 65.1 % (40.0-77.0); NUCLEATED RED BLOOD CELLS 0.4 % (0.0-0.19); PLATELET COUNT (AUTO) 256 K/uL (130-400); RED CELL DISTRIBUTION WIDTH 19.5 % (11.0-15.5); WHITE BLOOD COUNT (AUTO) 5.2 K/uL (4.8-10.8)
[2021-09-13 08:04] LABS: % IRON SATURATION 13.3 % (30-44)
[2021-09-13 08:05] LABS: CREATININE 0.5 mg/dL (0.5-1.5); MAGNESIUM 2.1 mg/dL (1.80-2.40); PHOSPHORUS 2.6 mg/dL (2.5-4.9); POTASSIUM 4.2 mmol/L (3.5-5.1)
[2021-09-13] MEDS: PANTOPRAZOLE 40 MG/VIAL IVP SCH (09:00)
[2021-09-13 12:00] VITALS: BP 109/64
[2021-09-13 14:32] LABS: HEMATOCRIT 31.6 % (42-54)
[2021-09-13 15:10] VITALS: BP 113/65
[2021-09-13] MEDS ORDERED: IRON SUCROSE COMPLEX 100 MG in 0.9%NACL 50ML 50 ML IV SCH (16:30)
[2021-09-13] MEDS ORDERED: IRON SUCROSE COMPLEX 100 MG/5 ML VIAL IVP SCH (17:00)
[2021-09-13 17:21] LABS: HEMATOCRIT 32.8 % (42-54)
[2021-09-13 20:00] VITALS: BP 124/66
[2021-09-13] MEDS ORDERED: PANTOPRAZOLE 40 MG TAB DR PO SCH (21:00)
[2021-09-13] MEDS ORDERED: Melatonin/Pyridoxine HCl (B6) (Melatonin 3 mg Tablet) PO SCH (21:00)
[2021-09-13] MEDS ORDERED: NON-FORMULARY MEDICATION 1 EACH (Pantoprazole Sodium (Protonix) 40 MG) PO SCH (21:00)
[2021-09-13] MEDS: SENNOSIDES 8.6 MG TABLET PO SCH (21:59)
[2021-09-13] MEDS: SUCRALFATE 1 GM TABLET PO SCH (21:59)
[2021-09-13 23:51] VITALS: BP 102/59
[2021-09-14 00:17] LABS: HEMATOCRIT 31.2 % (42-54)
[2021-09-14 05:00] VITALS: BP 120/50
[2021-09-14 05:43] LABS: INR 1.12 (0.85-1.15); PROTHROMBIN TIME 12.1 SEC (9.6-11.6)
[2021-09-14 05:45] LABS: PARTIAL THROMBOPLASTIN TIME 22.3 SEC (26.3-35.5)
[2021-09-14 08:00] VITALS: BP 124/56
[2021-09-14] MEDS: SUCRALFATE 1 GM TABLET PO SCH ×3 (08:38→17:26)
[2021-09-14] MEDS ORDERED: CYANOCOBALAMIN (VITAMIN B-12) 1,000 MCG TABLET PO SCH (09:00)
[2021-09-14] MEDS ORDERED: NON-FORMULARY MEDICATION 1 EACH (Cetirizine HCl 10 MG) PO SCH (09:00)
[2021-09-14] MEDS ORDERED: MULTIVITAMIN WITH MINERALS TABLET PO SCH (09:00)
[2021-09-14] MEDS ORDERED: FOLIC ACID 1 MG TABLET PO SCH (09:00)
[2021-09-14] MEDS ORDERED: CETIRIZINE HCL 5 MG TABLET PO SCH (09:00)
[2021-09-14] MEDS ORDERED: NON-FORMULARY MEDICATION 1 EACH (Cyanocobalamin (Vitamin B-12) (Vitamin B-12) 1,000 MCG) PO SCH (09:00)
[2021-09-14] MEDS ORDERED: LANSOPRAZOLE 15 MG SOLU TAB PEG SCH (09:00)
[2021-09-14] MEDS ORDERED: IRON SUCROSE COMPLEX 100 MG/5 ML VIAL IVP ONE (11:30)
[2021-09-14] MEDS ORDERED: IRON SUCROSE COMPLEX 100 MG in 0.9%NACL 50ML 50 ML IV ONE (11:30)
[2021-09-14] MEDS: SENNOSIDES 8.6 MG TABLET PO SCH (11:53)
[2021-09-14 12:00] VITALS: BP 113/46
== END 2021-09-14 18:35 ==
LOC: EDH 14:57 → EDHIP 14:58 → 3BH 09-13 12:00
PROVIDERS: ADMIT Hospitalist; ATTEND Hospitalist
DX: K92.2 Gastrointestinal hemorrhage, unspecified (principal); D62 Acute posthemorrhagic anemia; E46 Unspecified protein-calorie malnutrition; D50.9 Iron deficiency anemia, unspecified; R53.2 Functional quadriplegia; K20.90 Esophagitis, unspecified without bleeding; F03.90 Unspecified dementia, unspecified severity, without behavioral disturbance, psychotic disturbance, mood disturbance, and anxiety; F79 Unspecified intellectual disabilities; R47.01 Aphasia; Z68.20 Body mass index [BMI] 20.0-20.9, adult; Z79.899 Other long term (current) drug therapy; Z98.890 Other specified postprocedural states
CPT/HCPCS: 36415; 36430; 80048; 80053; 82270; 82728; 83540; 83550; 83735; 84100; 85014; 85018; 85025; 85610; 85730; 86850; 86900; 86901; 86923; 92610; 96361; 96374; 96375; 96376; C9113; G0378; J1756; J7030; P9016

== ENCOUNTER 2021-11-08 12:40 | Emergency (ER) | payer MEDICAID ==
[~2021-11-08 12:40] MED LIST changes: -PANT40TA PO
[2021-11-08 13:21] LABS: BASOPHILS % (AUTO) 0.6 % (0.0-5.0); EOSINOPHILS % (AUTO) 12.6 % (0.0-8.0); HEMATOCRIT 23.8 % (42-54); LYMPHOCYTES % (AUTO) 13.4 % (21.0-51.0); MEAN CORPUSCULAR HGB CONC 27.3 g/dL (32.0-36.0); MEAN CORPUSCULAR VOLUME 80.4 fL (79-99); MONOCYTES % (AUTO) 14.7 % (3.0-13.0); NEUTROPHILS % (AUTO) 58.5 % (40.0-77.0); PLATELET COUNT (AUTO) 348 K/uL (130-400); RED BLOOD CELL COUNT(AUTO) 2.96 MIL/uL (4.50-6.20); RED CELL DISTRIBUTION WIDTH 21.5 % (11.0-15.5); WHITE BLOOD COUNT (AUTO) 4.7 K/uL (4.8-10.8)
[2021-11-08 13:38] LABS: CREATININE 0.6 mg/dL (0.5-1.5); POTASSIUM 4.2 mmol/L (3.5-5.1)
[2021-11-08 13:42] LABS: ALBUMIN 2.9 g/dL (3.5-5.0); BILIRUBIN,TOTAL 0.1 mg/dL (0.2-1.0); TOTAL PROTEIN, SERUM 6.2 g/dL (6.0-8.3)
[2021-11-08 16:30] VITALS: BP 138/68
== END 2021-11-08 19:00 | disposition home or self-care (01) ==
LOC: EDH 12:40
DX: D64.9 Anemia, unspecified (principal); F03.90 Unspecified dementia, unspecified severity, without behavioral disturbance, psychotic disturbance, mood disturbance, and anxiety; K21.9 Gastro-esophageal reflux disease without esophagitis; Z88.5 Allergy status to narcotic agent; Z79.899 Other long term (current) drug therapy; Z98.890 Other specified postprocedural states
CPT/HCPCS: 36415; 36430; 80053; 85025; 86850; 86900; 86901; 86923; 99285; P9016

== ENCOUNTER 2021-11-24 11:02 | Emergency (ER) | payer MEDICAID ==
[~2021-11-24] VITALS: Ht 152.4 cm; Wt 45.4 kg
[2021-11-24 11:37] LABS: BASOPHILS % (AUTO) 1.8 % (0.0-5.0); EOSINOPHILS % (AUTO) 14.7 % (0.0-8.0); LYMPHOCYTES % (AUTO) 18.7 % (21.0-51.0); MEAN CORPUSCULAR HEMOGLOBIN 20.9 pg (27.0-33.0); MEAN CORPUSCULAR HGB CONC 27.4 g/dL (32.0-36.0); MEAN CORPUSCULAR VOLUME 76.4 fL (79-99); MONOCYTES % (AUTO) 14.1 % (3.0-13.0); NEUTROPHILS % (AUTO) 50.4 % (40.0-77.0); PLATELET COUNT (AUTO) 172 K/uL (130-400); RED BLOOD CELL COUNT(AUTO) 3.01 MIL/uL (4.50-6.20); WHITE BLOOD COUNT (AUTO) 3.3 K/uL (4.8-10.8)
[2021-11-24 11:45] LABS: CREATININE 0.7 mg/dL (0.5-1.5)
[2021-11-24 11:50] LABS: ALBUMIN 2.6 g/dL (3.5-5.0); BILIRUBIN,TOTAL 0.1 mg/dL (0.2-1.0); TOTAL PROTEIN, SERUM 5.7 g/dL (6.0-8.3)
[2021-11-24 16:50] VITALS: BP 113/94
== END 2021-11-24 17:30 ==
LOC: EDH 11:02
DX: D64.9 Anemia, unspecified (principal); F03.90 Unspecified dementia, unspecified severity, without behavioral disturbance, psychotic disturbance, mood disturbance, and anxiety; Z88.5 Allergy status to narcotic agent
CPT/HCPCS: 36415; 36430; 80053; 85025; 86850; 86900; 86901; 86923; 99291; P9016

== ENCOUNTER 2021-12-14 17:51 | Emergency (ER) | payer MEDICAID ==
[2021-12-14 18:34] LABS: EOSINOPHILS % (AUTO) 4.4 % (0.0-8.0); HEMATOCRIT 28.9 % (42-54); LYMPHOCYTES % (AUTO) 10.2 % (21.0-51.0); MEAN CORPUSCULAR HEMOGLOBIN 19.9 pg (27.0-33.0); MEAN CORPUSCULAR HGB CONC 27.3 g/dL (32.0-36.0); NUCLEATED RED BLOOD CELLS 0.4 % (0.0-0.19); PLATELET COUNT (AUTO) 621 K/uL (130-400); RED BLOOD CELL COUNT(AUTO) 3.96 MIL/uL (4.50-6.20); RED CELL DISTRIBUTION WIDTH 19.4 % (11.0-15.5); WHITE BLOOD COUNT (AUTO) 4.8 K/uL (4.8-10.8)
[2021-12-14 18:50] LABS: CREATININE 0.8 mg/dL (0.5-1.5); POTASSIUM 4.4 mmol/L (3.5-5.1)
[2021-12-14 18:55] LABS: ALBUMIN 2.9 g/dL (3.5-5.0); BILIRUBIN,TOTAL 0.2 mg/dL (0.2-1.0); TOTAL PROTEIN, SERUM 6.4 g/dL (6.0-8.3)
[2021-12-14 23:15] VITALS: BP 102/55
== END 2021-12-14 23:35 | disposition home or self-care (01) ==
LOC: EDH 17:51
DX: D64.9 Anemia, unspecified (principal); Z88.8 Allergy status to other drugs, medicaments and biological substances; Z88.5 Allergy status to narcotic agent; Z79.899 Other long term (current) drug therapy; Z98.890 Other specified postprocedural states
CPT/HCPCS: 36415; 80053; 85025; 86850; 86900; 86901

== ENCOUNTER 2021-12-28 17:22 | Emergency (ER) | payer MEDICAID ==
[2021-12-28 18:04] LABS: BASOPHILS % (AUTO) 1.1 % (0.0-5.0); EOSINOPHILS % (AUTO) 4.3 % (0.0-8.0); HEMATOCRIT 25.7 % (42-54); LYMPHOCYTES % (AUTO) 12.2 % (21.0-51.0); MEAN CORPUSCULAR HEMOGLOBIN 18.3 pg (27.0-33.0); MEAN CORPUSCULAR HGB CONC 26.8 g/dL (32.0-36.0); MEAN CORPUSCULAR VOLUME 68.2 fL (79-99); MONOCYTES % (AUTO) 11.4 % (3.0-13.0); NEUTROPHILS % (AUTO) 70.7 % (40.0-77.0); PLATELET COUNT (AUTO) 245 K/uL (130-400); RED BLOOD CELL COUNT(AUTO) 3.77 MIL/uL (4.50-6.20); RED CELL DISTRIBUTION WIDTH 18.7 % (11.0-15.5); WHITE BLOOD COUNT (AUTO) 3.7 K/uL (4.8-10.8)
[2021-12-28 18:18] LABS: CREATININE 0.7 mg/dL (0.5-1.5)
[2021-12-28 18:23] LABS: ALBUMIN 2.6 g/dL (3.5-5.0); TOTAL PROTEIN, SERUM 5.9 g/dL (6.0-8.3)
[2021-12-28 21:03] VITALS: BP 116/67
== END 2021-12-28 22:59 | disposition home or self-care (01) ==
LOC: EDH 17:22
DX: D62 Acute posthemorrhagic anemia (principal); D50.9 Iron deficiency anemia, unspecified; G80.9 Cerebral palsy, unspecified; Z88.5 Allergy status to narcotic agent
CPT/HCPCS: 99285; 36430; 80053; 85025; 86850; 86900; 86901; 86923; 36415; P9016

== ENCOUNTER 2022-01-18 09:30 | Emergency (ER) | payer MEDICAID ==
[2022-01-18 09:54] LABS: HEMATOCRIT 25.2 % (42-54); LYMPHOCYTES % (AUTO) 21.8 % (21.0-51.0); MEAN CORPUSCULAR HEMOGLOBIN 18.6 pg (27.0-33.0); MEAN CORPUSCULAR VOLUME 68.9 fL (79-99); MONOCYTES % (AUTO) 12.1 % (3.0-13.0); NEUTROPHILS % (AUTO) 57.6 % (40.0-77.0); NUCLEATED RED BLOOD CELLS 0.3 % (0.0-0.19); RED BLOOD CELL COUNT(AUTO) 3.66 MIL/uL (4.50-6.20); RED CELL DISTRIBUTION WIDTH 20.1 % (11.0-15.5); WHITE BLOOD COUNT (AUTO) 5.9 K/uL (4.8-10.8)
[2022-01-18 10:05] LABS: CREATININE 0.7 mg/dL (0.5-1.5)
[2022-01-18 10:10] LABS: ALBUMIN 2.5 g/dL (3.5-5.0)
[2022-01-18 10:36] LABS: PLATELET COUNT (AUTO) 829 K/uL (130-400)
[2022-01-18 11:17] LABS: PLATELET MORPHOLOGY COMMENT MARKED INCREASE
[2022-01-18 14:41] VITALS: BP 114/71
== END 2022-01-18 15:30 | disposition home or self-care (01) ==
LOC: EDH 09:30
DX: D64.9 Anemia, unspecified (principal); D75.839 Thrombocytosis, unspecified; Z88.8 Allergy status to other drugs, medicaments and biological substances; Z88.5 Allergy status to narcotic agent; Z79.899 Other long term (current) drug therapy; Z98.890 Other specified postprocedural states
CPT/HCPCS: 99285; 36430; 80053; 85025; 86850; 86900; 86901; 86923; 36415; P9016

== ENCOUNTER 2022-02-01 10:41 | Emergency (ER) | payer MEDICAID ==
[~2022-02-01] VITALS: Ht 160 cm; Wt 40.8 kg
[2022-02-01 11:23] LABS: BASOPHILS % (AUTO) 0.6 % (0.0-5.0); EOSINOPHILS % (AUTO) 3.4 % (0.0-8.0); LYMPHOCYTES % (AUTO) 8.6 % (21.0-51.0); MEAN CORPUSCULAR HEMOGLOBIN 19.3 pg (27.0-33.0); MEAN CORPUSCULAR HGB CONC 27.9 g/dL (32.0-36.0); MEAN CORPUSCULAR VOLUME 69.2 fL (79-99); MONOCYTES % (AUTO) 10.5 % (3.0-13.0); NEUTROPHILS % (AUTO) 76.5 % (40.0-77.0); PLATELET COUNT (AUTO) 262 K/uL (130-400); RED BLOOD CELL COUNT(AUTO) 3.47 MIL/uL (4.50-6.20); RED CELL DISTRIBUTION WIDTH 21.4 % (11.0-15.5); WHITE BLOOD COUNT (AUTO) 4.8 K/uL (4.8-10.8)
[2022-02-01 11:36] LABS: ALBUMIN 2.2 g/dL (3.5-5.0); CREATININE 0.7 mg/dL (0.5-1.5); TOTAL PROTEIN, SERUM 5.4 g/dL (6.0-8.3)
[2022-02-01 18:15] VITALS: BP 116/68
== END 2022-02-01 18:15 | disposition home or self-care (01) ==
LOC: EDH 10:41
DX: D64.9 Anemia, unspecified (principal); Z88.5 Allergy status to narcotic agent; Z79.899 Other long term (current) drug therapy
CPT/HCPCS: 99285; 36430; 80053; 85025; 86850; 86900; 86901; 86923; 36415; P9016

== ENCOUNTER 2022-02-23 08:44 | Emergency (ER) | payer MEDICAID ==
[2022-02-23 09:23] LABS: BASOPHILS % (AUTO) 1.1 % (0.0-5.0); EOSINOPHILS % (AUTO) 9.5 % (0.0-8.0); HEMATOCRIT 26.7 % (42-54); LYMPHOCYTES % (AUTO) 18.7 % (21.0-51.0); MEAN CORPUSCULAR HEMOGLOBIN 19.1 pg (27.0-33.0); MEAN CORPUSCULAR HGB CONC 27.7 g/dL (32.0-36.0); MEAN CORPUSCULAR VOLUME 68.8 fL (79-99); MONOCYTES % (AUTO) 12.5 % (3.0-13.0); NEUTROPHILS % (AUTO) 57.5 % (40.0-77.0); PLATELET COUNT (AUTO) 540 K/uL (130-400); RED BLOOD CELL COUNT(AUTO) 3.88 MIL/uL (4.50-6.20); RED CELL DISTRIBUTION WIDTH 24.7 % (11.0-15.5); WHITE BLOOD COUNT (AUTO) 4.6 K/uL (4.8-10.8)
[2022-02-23 09:44] LABS: CREATININE 0.7 mg/dL (0.5-1.5); POTASSIUM 4.2 mmol/L (3.5-5.1)
[2022-02-23 09:48] LABS: ALBUMIN 2.4 g/dL (3.5-5.0); TOTAL PROTEIN, SERUM 6.1 g/dL (6.0-8.3)
[2022-02-23 13:29] VITALS: BP 98/61
== END 2022-02-23 15:08 ==
LOC: EDH 08:44
DX: D50.9 Iron deficiency anemia, unspecified (principal); K92.2 Gastrointestinal hemorrhage, unspecified; G80.9 Cerebral palsy, unspecified; Z91.018 Allergy to other foods; Z88.5 Allergy status to narcotic agent; Z79.899 Other long term (current) drug therapy; Z98.890 Other specified postprocedural states
CPT/HCPCS: 99285; 36430; 82270; 80053; 85025; 86850; 86900; 86901; 86923; 36415; P9016

== ENCOUNTER 2022-03-22 06:29 | Emergency (ER) | payer MEDICAID ==
[2022-03-22 07:08] LABS: BASOPHILS % (AUTO) 1.5 % (0.0-5.0); EOSINOPHILS % (AUTO) 17.9 % (0.0-8.0); HEMATOCRIT 26.8 % (42-54); LYMPHOCYTES % (AUTO) 18.1 % (21.0-51.0); MEAN CORPUSCULAR HEMOGLOBIN 20.8 pg (27.0-33.0); MEAN CORPUSCULAR HGB CONC 27.6 g/dL (32.0-36.0); MEAN CORPUSCULAR VOLUME 75.5 fL (79-99); MONOCYTES % (AUTO) 13.3 % (3.0-13.0); NEUTROPHILS % (AUTO) 48.8 % (40.0-77.0); NUCLEATED RED BLOOD CELLS 0.4 % (0.0-0.19); RED BLOOD CELL COUNT(AUTO) 3.55 MIL/uL (4.50-6.20); RED CELL DISTRIBUTION WIDTH 24.9 % (11.0-15.5); WHITE BLOOD COUNT (AUTO) 5.2 K/uL (4.8-10.8)
[2022-03-22 07:17] LABS: PLATELET COUNT (AUTO) 771 K/uL (130-400)
[2022-03-22 07:23] LABS: PROTHROMBIN TIME 10.9 SEC (9.6-11.6)
[2022-03-22 07:24] LABS: ALBUMIN 2.4 g/dL (3.5-5.0); CREATININE 0.7 mg/dL (0.5-1.5); PARTIAL THROMBOPLASTIN TIME 24.5 SEC (26.3-35.5); POTASSIUM 3.9 mmol/L (3.5-5.1); TOTAL PROTEIN, SERUM 6.4 g/dL (6.0-8.3)
[2022-03-22 07:27] VITALS: BP 102/56
[2022-03-22 07:29] LABS: PLATELET MORPHOLOGY COMMENT MARKED INCREASE
== END 2022-03-22 08:53 | disposition home or self-care (01) ==
LOC: EDH 06:29
DX: D64.9 Anemia, unspecified (principal); D75.839 Thrombocytosis, unspecified; F32.A Depression, unspecified; G80.9 Cerebral palsy, unspecified; Z88.5 Allergy status to narcotic agent; Z88.8 Allergy status to other drugs, medicaments and biological substances; Z79.899 Other long term (current) drug therapy; Z98.890 Other specified postprocedural states
CPT/HCPCS: 36415; 80053; 85025; 85610; 85730; 86850; 86900; 86901

== ENCOUNTER 2022-03-30 01:21 | Emergency (ER) | payer MEDICAID ==
[2022-03-30 02:00] LABS: HEMATOCRIT 25.5 % (42-54); LYMPHOCYTES % (AUTO) 13.4 % (21.0-51.0); MEAN CORPUSCULAR HEMOGLOBIN 20.3 pg (27.0-33.0); MEAN CORPUSCULAR HGB CONC 27.1 g/dL (32.0-36.0); MONOCYTES % (AUTO) 12.2 % (3.0-13.0); NEUTROPHILS % (AUTO) 59.2 % (40.0-77.0); PLATELET COUNT (AUTO) 306 K/uL (130-400); RED CELL DISTRIBUTION WIDTH 22.5 % (11.0-15.5); WHITE BLOOD COUNT (AUTO) 5.1 K/uL (4.8-10.8)
[2022-03-30 02:18] LABS: ALBUMIN 2.2 g/dL (3.5-5.0); CREATININE 0.6 mg/dL (0.5-1.5); TOTAL PROTEIN, SERUM 5.7 g/dL (6.0-8.3)
[2022-03-30 06:26] LABS: HEMATOCRIT 32.9 % (42-54)
[2022-03-30 11:31] VITALS: BP 118/70
== END 2022-03-30 11:32 | disposition home or self-care (01) ==
LOC: EDH 01:21
DX: D64.9 Anemia, unspecified (principal); Z88.8 Allergy status to other drugs, medicaments and biological substances; Z88.5 Allergy status to narcotic agent; Z79.899 Other long term (current) drug therapy; Z98.890 Other specified postprocedural states
CPT/HCPCS: 99285; 36430; 80053; 85025; 86850; 86900; 86901; 86923; 36415; 85014; 85018; P9016

== ENCOUNTER 2022-04-14 13:17 | Emergency (ER) | payer MEDICAID ==
[~2022-04-14] VITALS: Ht 160 cm; Wt 35.4 kg
[2022-04-14 14:03] LABS: HEMATOCRIT 26.2 % (42-54)
[2022-04-14 15:03] VITALS: BP 112/65
== END 2022-04-14 15:40 | disposition home or self-care (01) ==
LOC: EDH 13:17
DX: D64.9 Anemia, unspecified (principal); Z88.1 Allergy status to other antibiotic agents; Z88.5 Allergy status to narcotic agent; Z79.899 Other long term (current) drug therapy; Z98.890 Other specified postprocedural states
CPT/HCPCS: 36415; 85014; 85018

== ENCOUNTER 2022-05-01 20:36 | Emergency (ER) | payer MEDICAID ==
[~2022-05-01] VITALS: Ht 152.4 cm; Wt 45.4 kg
[~2022-05-01 20:36] MED LIST changes: +DEXT1DRO OP; +FAMO-136 PO; +ONDA-104 PO; +WHEA1POW2 PO
[2022-05-01 21:35] LABS: BASOPHILS % (AUTO) 0.7 % (0.0-5.0); EOSINOPHILS % (AUTO) 9.8 % (0.0-8.0); HEMATOCRIT 34.8 % (42-54); LYMPHOCYTES % (AUTO) 11.9 % (21.0-51.0); MEAN CORPUSCULAR HEMOGLOBIN 21.9 pg (27.0-33.0); MEAN CORPUSCULAR HGB CONC 28.7 g/dL (32.0-36.0); MEAN CORPUSCULAR VOLUME 76.1 fL (79-99); MONOCYTES % (AUTO) 9.6 % (3.0-13.0); NEUTROPHILS % (AUTO) 67.6 % (40.0-77.0); PLATELET COUNT (AUTO) 215 K/uL (130-400); RED BLOOD CELL COUNT(AUTO) 4.57 MIL/uL (4.50-6.20); RED CELL DISTRIBUTION WIDTH 21.2 % (11.0-15.5); WHITE BLOOD COUNT (AUTO) 5.4 K/uL (4.8-10.8)
[2022-05-01 22:04] LABS: POTASSIUM 4.1 mmol/L (3.5-5.1)
[2022-05-01 22:09] LABS: ALBUMIN 2.4 g/dL (3.5-5.0); TOTAL PROTEIN, SERUM 6.4 g/dL (6.0-8.3)
[2022-05-02 00:55] VITALS: BP 116/57
== END 2022-05-02 00:55 | disposition home or self-care (01) ==
LOC: EDH 20:36
DX: R05.9 Cough, unspecified (principal); Z20.822 Contact with and (suspected) exposure to COVID-19; Z88.5 Allergy status to narcotic agent
CPT/HCPCS: 99284; 71045; 87635; 80053; 85025; 87804 ×2; 36415; C9803